=== PATIENT | male | born 1960 | race Two or more races ===

== ENCOUNTER 2020-06-07 15:19 | Outpatient (REF) | payer MEDICARE, MEDICAID, SELFPAY ==
--- NOTE | 2020-06-07 | XR_ITS ---
EXAMINATION: XR ABDOMEN COMPLETE CLINICAL INDICATION: Metallic object within transverse colon on prior study COMPARISON: CT 05/17/2020 TECHNIQUE: Multiple views of the abdomen AP chest. FINDINGS: No bowel dilatation to suggest obstruction. No metallic foreign body is evident. Lungs appear clear. IMPRESSION: Nonobstructive bowel gas pattern with no metallic foreign body.
== END 2020-06-07 15:20 | disposition home or self-care (01) ==
LOC: HO.XRAY 15:19
PROVIDERS: PCP Internal Medicine; Visit Provider Internal Medicine Gastroenterology
DX: R93.3 Abnormal findings on diagnostic imaging of other parts of digestive tract (principal)
CPT/HCPCS: 74022

== ENCOUNTER 2020-06-14 13:47 | Outpatient (REF) | payer MEDICARE, MEDICAID, SELFPAY ==
--- NOTE | 2020-06-14 14:03 | MR_ITS ---
EXAMINATION: MR LUMBAR SPINE WITHOUT CONTRAST CLINICAL INFORMATION: Lumbar radiculopathy. Evaluate for disc herniation. Left lower extremity numbness. COMPARISON: CT scan of the abdomen and pelvis 05/17/2020. TECHNIQUE: MRI of the lumbar spine was obtained using routine sequences without contrast. FINDINGS: There is transitional spinal anatomy with partial sacralization of the L5 vertebral segment. Alignment is normal. Vertebral heights are preserved. No acute bone marrow signal changes. There is slight loss of intervertebral disc height and T2 signal intensity at multiple levels related to disc degeneration. The tip of the conus medullaris is located at the level of L1-L2. No mass effect on the conus. Visualized distal cord signal intensity is normal. At L1-L2 the annular contour is normal. No canal or neuroforaminal compromise. At L2-L3 there is a slightly bulging disc. No canal stenosis. No mass effect on the traversing or foraminal nerve root. At L3-L4 there is a slightly bulging disc. Bilateral facet degenerative change. No canal stenosis. Partial effacement of perineural fat with mild mass effect on the left L3 foraminal nerve root. At L4-L5 there is a diffusely bulging disc. Bilateral facet degenerative change. No canal stenosis. Mild mass effect on both L4 foraminal nerve roots, slightly greater on the right. At L5-S1 the annular contour is normal. No canal or neuroforaminal compromise. Limited visualization of the retroperitoneal anatomy reveals no abnormal finding. IMPRESSION: Of note there is transitional spinal anatomy at the lumbosacral junction with partial sacralization of L5. There is disc degeneration and arthrosis of the articular facet joints at multiple levels within the mid to lower lumbar spine. No canal stenosis. Mild mass effect on both L4 foraminal nerve roots related to degenerative changes at L4-L5 and mild mass effect on the left L3 foraminal nerve root related to changes at L3-L4.
== END 2020-06-14 13:48 | disposition home or self-care (01) ==
LOC: HO.MRI 13:47
PROVIDERS: Visit Provider Psychiatry & Neurology Neurology
DX: M54.16 Radiculopathy, lumbar region (principal)
CPT/HCPCS: 72148

== ENCOUNTER 2020-06-26 08:40 | Outpatient (REF) | payer MEDICARE, MEDICAID, SELFPAY | END 2020-06-26 08:41 | disposition home or self-care (01) | LOC: HO.LAB 08:40 | PROVIDERS: Visit Provider Internal Medicine | DX: Z20.828 Contact with and (suspected) exposure to other viral communicable diseases (principal) | CPT/HCPCS: 87635 ==

== ENCOUNTER 2020-07-14 09:05 | Outpatient (REF) | payer MEDICARE, MEDICAID, SELFPAY | END 2020-07-14 09:06 | disposition home or self-care (01) | LOC: HO.LAB 09:05 | PROVIDERS: Visit Provider Internal Medicine | DX: Z20.828 Contact with and (suspected) exposure to other viral communicable diseases (principal) | CPT/HCPCS: C9803; U0003 ==

== ENCOUNTER → 2020-08-08 13:49 | Outpatient (BNVA) | payer MEDICARE, MEDICAID, SELFPAY | PROVIDERS: PCP Internal Medicine; Referring Provider Internal Medicine; Visit Provider Internal Medicine | DX: I25.10 Atherosclerotic heart disease of native coronary artery without angina pectoris (principal); I42.8 Other cardiomyopathies; I10 Essential (primary) hypertension | CPT/HCPCS: 93005; 99212 ==

== ENCOUNTER 2020-08-15 09:52 | Outpatient (REF) | payer MEDICARE, MEDICAID, SELFPAY | END 2020-08-15 09:53 | disposition home or self-care (01) | LOC: HO.LAB 09:52 | PROVIDERS: Visit Provider Internal Medicine | DX: Z20.828 Contact with and (suspected) exposure to other viral communicable diseases (principal) | CPT/HCPCS: C9803; U0003 ==

== ENCOUNTER 2020-09-13 16:29 | Emergency (ER) | payer MEDICARE, MEDICAID, SELFPAY ==
[2020-09-13 16:38] VITALS: BP 167/99; PULSE 88; RESP 20; TEMP 36.6; O2SAT 99; BMI 40.1
--- NOTE | 2020-09-13 16:42 | XR_ITS ---
EXAMINATION: XR CHEST CLINICAL INFORMATION: Chest pain COMPARISON: Chest radiographs 10/01/2019, 07/03/2019 TECHNIQUE: Upright PA view of the chest was obtained. FINDINGS: There is no pneumothorax, pleural reaction, infiltrate, or effusion. The costophrenic sulci are clear. There is linear scar versus areolar tissue adjacent to cardiac apex similar to prior study. There is no airspace consolidation or definite groundglass opacity. The heart is normal in size. The hilar and mediastinal contours are normal. There are multilevel degenerative changes thoracic spine. XR/XR chest 1V IMPRESSION: Unremarkable examination.
--- NOTE | 2020-09-13 16:42 | ECG_ITS ---
Test Reason : CHEST PAIN Blood Pressure : / mmHG Vent. Rate : 083 BPM Atrial Rate : 083 BPM P-R Int : 168 ms QRS Dur : 096 ms QT Int : 380 ms P-R-T Axes : 044 -01 030 degrees QTc Int : 446 ms Normal sinus rhythm Minimal voltage criteria for LVH, may be normal variant Borderline ECG When compared with ECG of 01-OCT-2019 19:54, No significant change was found Referred By: Generic ED Physician Electronically Signed By:KATH TORRES MD
[2020-09-13 17:33] VITALS: BP 144/90; PULSE 79; RESP 17; TEMP 36.4; O2SAT 99
[2020-09-13 17:37] LABS: MANUAL DIFF FLAG NO
[2020-09-13 17:47] LABS: Basophils Absolute Auto 0.1 X10*3/uL (0.0-0.2); Basophils Percent Auto 0.6 % (0-2); Eosinophils Absolute Auto 0.3 X10*3/uL (0.0-0.4); Eosinophils Percent Auto 3.7 % (0-4); Hematocrit 41.1 % (42-52); Hemoglobin 13.1 g/dl (14.0-18.0); Imm Gran Abs Auto 0.03 X10*3/uL (0.00-0.03); Imm Gran Pct Auto 0.3 % (0.0-0.4); Lymphocytes Absolute Auto 1.6 X10*3/uL (1.2-4.9); Lymphocytes Percent Auto 17.4 % (20-40); Mean Corpuscular HGB Conc 31.9 g/dl (31.0-36.0); Mean Corpuscular Hemoglobin 27.5 pg (27.0-33.0); Mean Corpuscular Volume 86.2 fL (80-98); Mean Platelet Volume 10.9 fL (9.4-12.4); Monocytes Absolute Auto 0.9 X10*3/uL (0.1-1.2); Monocytes Percent Auto 10.4 % (2-11); Neutrophils Absolute Auto 6.1 X10*3/uL (2.0-8.3); Neutrophils Percent Auto 67.6 % (45-73); Platelet Count 208 X10*3/uL (160-400); Red Blood Count 4.77 X10*6/uL (4.60-5.80); Red Cell Distribution Width 13.6 % (11.0-16.0)
[2020-09-13 18:02] LABS: Anion Gap 14 (12-20); Blood Urea Nitrogen 18 mg/dL (9-16); Calcium 9.3 mg/dL (8.4-10.2); Carbon Dioxide 26 mmol/L (22-29); Chloride 105 mmol/L (96-108); Creatinine Clr Calc Pharmacy 108.5; Estimated Glomerular Filt Rate > 60; Glucose Random 88 mg/dL (60-115); Potassium 4.5 mmol/l (3.3-5.1); Sodium 140 mmol/L (135-145)
[2020-09-13 18:08] LABS: Troponin-I High Sensitivity < 3.5 ng/L (<3.5-35.0)
== END 2020-09-13 19:41 | disposition left against medical advice (07) ==
LOC: HO.ED 19:43
PROVIDERS: Emergency Provider Emergency Medicine
DX: R07.9 Chest pain, unspecified (principal); I10 Essential (primary) hypertension; F17.210 Nicotine dependence, cigarettes, uncomplicated
CPT/HCPCS: 36415; 71045; 80048; 84484; 85025; 93005; 99283

== ENCOUNTER 2020-10-18 09:35 | Outpatient (REF) | payer MEDICARE, MEDICAID, SELFPAY | END 2020-10-18 09:36 | disposition home or self-care (01) | LOC: HO.LAB 09:35 | PROVIDERS: Visit Provider Internal Medicine | DX: Z20.822 Contact with and (suspected) exposure to COVID-19 (principal) | CPT/HCPCS: 36415; C9803; U0003; U0005 ==

== ENCOUNTER 2020-10-30 08:25 | Outpatient (REF) | payer MEDICARE, MEDICAID, SELFPAY | END 2020-10-30 08:26 | disposition home or self-care (01) | LOC: HO.LAB 08:25 | PROVIDERS: Visit Provider Internal Medicine | DX: Z20.822 Contact with and (suspected) exposure to COVID-19 (principal) | CPT/HCPCS: 36415; C9803; U0003; U0005 ==

== ENCOUNTER 2020-11-28 14:30 | Outpatient (REF) | payer MEDICARE, MEDICAID, SELFPAY ==
[2020-11-29 11:18] LABS: SARS COV2 PCR INHOUSE NEGATIVE (Negative)
== END 2020-11-28 14:31 | disposition home or self-care (01) ==
LOC: HO.LAB 14:30
PROVIDERS: Visit Provider Internal Medicine
DX: Z20.822 Contact with and (suspected) exposure to COVID-19 (principal)
CPT/HCPCS: C9803; U0003

== ENCOUNTER 2020-12-12 19:54 | Emergency (ER) | payer OTHER, MEDICARE, MEDICAID, SELFPAY ==
[2020-12-12 20:26] VITALS: BP 186/106; PULSE 71; RESP 18; TEMP 36.7; O2SAT 100; BMI 40.0
[2020-12-12 21:10] LABS: MANUAL DIFF FLAG NO
[2020-12-12 21:12] LABS: Basophils Percent Auto 0.5 % (0-2); Eosinophils Absolute Auto 0.2 X10*3/uL (0.0-0.4); Hematocrit 41.2 % (42-52); Hemoglobin 13.3 g/dl (14.0-18.0); Imm Gran Abs Auto 0.02 X10*3/uL (0.00-0.03); Imm Gran Pct Auto 0.2 % (0.0-0.4); Lymphocytes Absolute Auto 1.7 X10*3/uL (1.2-4.9); Lymphocytes Percent Auto 21.6 % (20-40); Mean Corpuscular HGB Conc 32.3 g/dl (31.0-36.0); Mean Corpuscular Hemoglobin 27.7 pg (27.0-33.0); Mean Corpuscular Volume 85.7 fL (80-98); Mean Platelet Volume 10.9 fL (9.4-12.4); Monocytes Absolute Auto 0.7 X10*3/uL (0.1-1.2); Monocytes Percent Auto 9.1 % (2-11); Neutrophils Absolute Auto 5.3 X10*3/uL (2.0-8.3); Neutrophils Percent Auto 65.6 % (45-73); Platelet Count 208 X10*3/uL (160-400); Red Blood Count 4.81 X10*6/uL (4.60-5.80); Red Cell Distribution Width 14.1 % (11.0-16.0); White Blood Count 8.1 X10*3/uL (4.8-10.8)
[2020-12-12 21:43] LABS: Troponin-I High Sensitivity 3.8 ng/L (<3.5-35.0)
== END 2020-12-12 22:35 | disposition left against medical advice (07) ==
PROVIDERS: Emergency Medicine; Emergency Provider Emergency Medicine
DX: R51.9 Headache, unspecified (principal); I10 Essential (primary) hypertension; Z79.899 Other long term (current) drug therapy; Z79.02 Long term (current) use of antithrombotics/antiplatelets
CPT/HCPCS: 36415; 84484; 85025; 99282; 99283

== ENCOUNTER → 2021-02-02 10:16 | Outpatient (REF) | payer MEDICARE, MEDICAID, SELFPAY ==
--- NOTE | 2021-02-02 10:21 | CA_ITS ---
Transthoracic Echocardiogram Patient (Last, First, Middle): Solomon Álvarez M Gender: Male Date of : 1960 Age: 60 Procedure Date: 02/02/2021 Procedure Type: Transthoracic Echocardiogram Location: OP Height: 177.8 cm Weight: 124.74 kg BSA: 2.39 m2 Heart Rate: bpm BP: 142 / 84 mmHg Geographical Historian: Referring MD: Jovany Lazcano MD Symptoms: I42.8 - Other cardiomyopathies Conclusions: - The left ventricular systolic function is mild to moderately decreased. The visually estimated ejection fraction is between 35-40%. - The apical inferior, apical septum, and mid inferoseptal segments are hypokinetic. - The basal inferior, mid inferior, and basal inferoseptal segments are akinetic. - There is mild dilatation of the ascending aorta and mild dilatation of the aortic arch. Findings Procedure Information Contrast agent, definity, is being given per protocol without apparent complications. Left Ventricle Normal left ventricular cavity size. There is mildly increased left ventricular wall thickness. The left ventricular systolic function is mild to moderately decreased. The visually estimated ejection fraction is between 35-40%. There is evidence of regional wall motion abnormalities. Abnormal diastolic function is noted. Spectral Doppler is indicative of a pseudonormal filling pattern. E/E prime ratio is between 8 and 15 consistent with indeterminate filling pressures. Wall Motion Rest Echo Findings The apical inferior, apical septum, and mid inferoseptal segments are hypokinetic. The basal inferior, mid inferior, and basal inferoseptal segments are akinetic. Right Ventricle Normal right ventricular cavity size and systolic function. Atria The left atrium is normal in size. The right atrium is normal in size. Aortic Valve There is a normal trileaflet aortic valve. There is mild thickening of the aortic valve. There is no aortic valve stenosis. There is no aortic valve regurgitation. Mitral Valve Normal mitral valve structure and function. There is trace mitral valve regurgitation. There is no mitral valve stenosis. Pulmonic Valve The pulmonic valve is likely normal. Tricuspid Valve Normal tricuspid valve structure and function. There is trace tricuspid valve regurgitation. Mildly elevated right atrial pressure. There is no evidence of pulmonary hypertension. Great Vessels There is mild dilatation of the ascending aorta and mild dilatation of the aortic arch. The visualized portions of the pulmonary artery and branches are normal. Venous The inferior vena cava is normal in size and collapses less than 50% with inspiration. Pericardium/Pleural There is no evidence of pericardial effusion. Prior Study Comparison No significant change compared to prior study dated: 02/17/2020. Measurements 2D Linear Measurements RVIDd: 2.99 RVIDd Index: 1.25 IVSd: 1.16 0.6-0.9/0.6-1.0 cm LVIDd: 6.20 3.9-5.3/4.2-5.9 cm LVIDd Index: 2.59 2.4-3.2/2.2-3.1 cm/m2 LVIDs: 4.89 2.0-3.6 cm LVPWd: 1.21 0.7-1.1 cm Ao Root: 3.30 2.1-3.5 cm LA Diam: 4.30 2.7-3.8/3.0-4.0 cm LAIDs Index: 1.80 1.5-2.3 cm/m2 LV Mass: 406.74 67-162/88-224 g LV Mass Index: 170.18 43-95/49-115 g/m2 LVOT Diam: 2.50 3.0+(-)1.3 cm 2D Systolic Function EF 4C: 21.80 >55% EF 2C: 51.50 >55% EF BiP: 39.90 >55% Mitral Valve MV Pk E: 0.57 MV PK A: 0.51 MV Decel Time: 259.00 E/A: 1.10 E'Lateral: 7.72 E'Medial: 5.33 E/E' Med: 10.80 E/E' Lat: 7.40 Aortic Valve AoV Pk Jorge A: 1.29 AoV Mn Jorge A: 1.00 AoV VTI: 0.27 AoV Pk Grad: 7.00 Aov Mn Grad: 4.00 PAOLA Cont.VTI: 2.74 LVOT LVOT Pk Jorge A: 0.73 LVOT Mn Jorge A: 0.47 LVOT VTI: 0.15 LVOT Pk Grad: 2.00 LVOT Mn Grad: 1.00 LVOT Diam: 2.50 LVOT Area: 4.91 Diastolic Function MV Pk E: 0.57 MV Pk A: 0.51 E/A: 1.10 E'Medial: 5.33 E/E' Med: 10.80 E' Laterial: 7.72 E/E' Lat: 7.40 Tricuspid Valve TR Pk Jorge A: 2.06 TR Pk Grad: 17.00 RA Press: 3.00 RVSP: 20.00 Great Vessels Aorta Ao Root-2D: 3.30 2.0-3.7 cm Ao Asc: 3.50 2.1-3.4 cm Ao Arch: 3.40 Updated in Other Vendor System with Status of Final Serafin Ruggiero MD electronically signed on 02/04/2021 7:46:35 PM with status of Final
== END ==
LOC: HO.CARD 10:16
PROVIDERS: Visit Provider Internal Medicine
DX: I42.8 Other cardiomyopathies (principal); I25.10 Atherosclerotic heart disease of native coronary artery without angina pectoris; J45.909 Unspecified asthma, uncomplicated
CPT/HCPCS: 93306; Q9957

== ENCOUNTER → 2021-02-14 13:01 | Outpatient (BNVA) | payer MEDICARE, MEDICAID, SELFPAY | PROVIDERS: PCP Internal Medicine; Referring Provider Internal Medicine; Visit Provider Internal Medicine | DX: I42.8 Other cardiomyopathies (principal); I25.10 Atherosclerotic heart disease of native coronary artery without angina pectoris; I10 Essential (primary) hypertension | CPT/HCPCS: 99212 ==

== ENCOUNTER 2021-02-19 17:14 | Inpatient (IN) | payer OTHER, MEDICARE, MEDICAID, SELFPAY ==
--- NOTE | 2021-02-19 | ECG_ITS ---
Test Reason : CP Blood Pressure : / mmHG Vent. Rate : 070 BPM Atrial Rate : 070 BPM P-R Int : 142 ms QRS Dur : 100 ms QT Int : 412 ms P-R-T Axes : 023 -03 004 degrees QTc Int : 444 ms Normal sinus rhythm Moderate voltage criteria for LVH, may be normal variant Borderline ECG When compared with ECG of 13-SEP-2020 17:23, No significant changes seen Referred By: Generic ED Physician Electronically Signed By:Serafin Ruggiero
--- NOTE | ~2021-02-19 | XR_ITS ---
EXAMINATION: XR CHEST CLINICAL INFORMATION: Chest pain COMPARISON: None TECHNIQUE: Frontal view of the chest was obtained. FINDINGS: Again seen is some minimal atelectasis at the left lung base. No significant abnormality is noted involving the heart, lungs, mediastinum, bony thorax or soft tissues. XR/XR chest 1V IMPRESSION: No acute intrathoracic disease
--- NOTE | 2021-02-19 07:26 | ECG_ITS ---
Test Reason : CHEST PRESSURE Blood Pressure : / mmHG Vent. Rate : 055 BPM Atrial Rate : 055 BPM P-R Int : 164 ms QRS Dur : 104 ms QT Int : 444 ms P-R-T Axes : 028 001 012 degrees QTc Int : 424 ms Sinus bradycardia Moderate voltage criteria for LVH, may be normal variant Borderline ECG When compared with ECG of 19-FEB-2021 17:28, No significant change was found Referred By: Brian Hancock Electronically Signed By:Serafin Ruggiero
[2021-02-19 17:17] VITALS: BP 164/84; PULSE 79; RESP 18; TEMP 36.8; O2SAT 99; BMI 39.4
--- NOTE | 2021-02-19 17:54 | ED_ITS ---
HPI - Chest Pain General Chief Complaint: Chest Pain Stated Complaint: Chest pain Time Seen by Provider: 02/19/21 17:54 Source: patient Mode of arrival: ambulatory Limitations: no limitations History of Present Illness HPI narrative: 60-year-old male with past medical history significant for morbid obesity hypertension, nonischemic cardiomyopathy who has had a cardiac catheterization in 2012 that showed [id number] obstructive disease and normal left main. And recent echo on February 01 that showed LVEF of 35-40% being followed by cardiology here and plan for cardiac catheterization on February 27 he presents today with complaint of left-sided/substernal chest pain that he describes as pressure and squeezing like onset at rest 45 minutes prior to arrival. States now since he has come here it has resolved. States similar episodes in the past and pain comes and goes. Otherwise he denies any other recent illness. No fever or cough. He does report there is some mild shortness of breath at times similar to previous episodes. At this moment he does not any chest pain. States he is currently taking Plavix beginning take aspirin because he has an allergy to it. MD complaint: chest pain Pertinent past history: coronary artery disease Onset (ago): minute(s) (45 minutes) Timing of current episode: episodic Prior episodes: Yes Onset: during rest Pain radiation: none Severity: mild Quality: tightness Relieving factors: nothing Exacerbating factors: nothing Treatment prior to arrival: other (Plavix) Related Data Home Medications Medication Instructions Recorded Confirmed albuterol sulfate 90 mcg/actuation 1 - 2 puff INHALATION Q4-6H PRN 08/08/20 02/19/21 aerosol inhaler atorvastatin 80 mg tablet 80 mg PO DAILY 08/08/20 02/19/21 clopidogrel 75 mg tablet 75 mg PO DAILY 08/08/20 02/19/21 fluticasone propionate 230 1 puff PO BID 08/08/20 02/19/21 mcg-salmeterol 21 mcg/actuation HFA inhaler fluticasone propionate 50 1 spray INTRANASAL BID 08/08/20 02/19/21 mcg/actuation nasal spray,suspension metoprolol succinate 50 mg 50 mg PO DAILY 08/08/20 02/19/21 tablet,extended release 24 hr acetaminophen 500 mg tablet 1,000 mg PO Q6H PRN 12/15/20 02/19/21 Previous Rx's Medication Instructions Recorded losartan 100 mg tablet 100 mg PO DAILY #90 tab 12/22/20 amlodipine 5 mg tablet 5 mg PO DAILY 90 Days #90 tab 01/26/21 Allergies Allergy/AdvReac Type Severity Reaction Status Date / Time aspirin [Aspirin] Allergy Severe SWELLING, Verified 02/14/21 13:16 rash/edema ibuprofen [Ibuprofen] Allergy Severe SWELLING, Verified 02/14/21 13:16 rash/edema Penicillins Allergy Severe SWELLING Verified 02/14/21 13:16 Review of Systems Review of Systems: Constitutional: No Weight loss, No Fever, No Chills, No Night Sweats, No Fatigue, No Malaise ENT/Mouth: No Hearing loss, No Ear Pain, No Nasal Congestion, No Sinus Pain, No Hoarseness, No sore throat, No Rhinorrhea, No Swallowing Difficulty Eyes: No Eye Pain, No Swelling, No Redness, No Foreign Body, No Discharge, No Vision Changes Cardiovascular: As noted per HPI, No Dyspnea on Exertion, No Orthopnea, No Edema, No Palpitations Respiratory: No Cough, No Sputum, No Wheezing, No Smoke Exposure, No Dyspnea Gastrointestinal: No Nausea, No Vomiting, No Diarrhea, No Constipation, No abdominal Pain, No Hematochezia, No Melena Genitourinary: no irregular bleeding, No Dysuria, No Urinary Frequency, No Hematuria, No Urinary Incontinence, No Urgency, No Flank Pain, No Urinary Flow Changes, No Hesitancy Musculoskeletal: No joint pain, No Myalgias, No Joint Swelling Skin: No Skin Lesions, No rash Neuro: No Weakness, No Numbness, No Paresthesias, No Loss of Consciousness, No D izziness, No Headache Psych: No Anxiety/Panic, No Depression, No Social Issues Heme/Lymph: No Bruising, No Bleeding,No Lymphadenopathy Endocrine: No Polyuria, No Polydipsia, No Temperature Intolerance Yes all other systems are reviewed and are negative [facility] Past Medical History Medical History (Updated 02/20/21 @ 01:00 by Brian Hancock NP) Atherosclerotic cardiovascular disease Essential hypertension HTN (hypertension) NICM (nonischemic cardiomyopathy) Surgical History History of bilateral knee arthroplasty History of cardiac catheterization (~12/2013) Family History Family History Father Pacemaker CVD (cardiovascular disease) HTN (hypertension) Mother CVD (cardiovascular disease) Asthma Social History Social History (Updated 02/14/21 @ 13:17 by QASIM Benites) Alcohol intake: current Alcohol intake frequency: holidays/special occasions only Alcohol type: beer Patient Tobacco Use Status: Current someday Tobacco user Cigarette Packs Per Day: 0.5 Use of substances other than those prescribed or required for medical reasons: No Advance Directives: No Advance Directives Information Provided: Yes Physical Exam Vital Signs: Vital Signs: Last Vital Signs Temp 98.2 F 02/19/21 22:55 Pulse 58 02/20/21 00:39 Resp 16 02/20/21 00:39 BP 154/91 H 02/20/21 00:39 Pulse Ox 99 02/20/21 00:39 Body Mass Index 39.4 Reviewed Const: General: cooperative and healthy appearing; No acute distress or intoxicated appearing Nutritional Appearance: average body habitus Orientation/consciousness: patient oriented x3 HENMT: Head: Yes normal to inspection Ears: hearing grossly normal bilaterally Eyes: General: appearance normal, both eyes and all related structures Visual Anglin: normal visual anglin by confrontation Neck: Neck: Yes normal visual inspection, No positive Brudzinski's sign, No positive Kernig's sign and No tender Thyroid: Thyroid normal Chest: Chest palpation & inspection: normal inspection of the chest Resp: Effort & Inspection: normal respiratory effort Auscultation: clear to auscultation bilaterally Cardio: Jugular venous distension: no JVD Rhythm: regular rhythm Heart sounds: S1 normal heart sound present and S2 normal heart sound present GI: Inspection: Yes normal to inspection Percussion: Yes normal to percussion Auscultation: normal bowel sounds : General: Yes no CVA tenderness Back/Spine/Pelvis: Back: no CVA tenderness Skin: General skin exam: no rashes or lesions noted Neuro: General: patient oriented x3 Extrem: General: Yes normal to inspection Course Reevaluation(s) Reevaluation #1: 60-year-old male with history of morbid obesity, is a sclerotic cardiovascular disease, nonischemic cardiomyopathy presenting with pressure- like chest pain resolved prior to arrival occurred 45 minutes prior to coming to the ED while he was sitting in his recliner similar episodes in the past. History of unstable angina has had cardiac catheterization with [id number] disease in 2012 recent echo 2 weeks ago was also reviewed. Plan for labs, EKG and will consult cardiology. He does have Plavix on board he has allergy to aspirin. Reevaluation #2: Serial troponin as well as repeat EKG unremarkable. He had 1 e pisode of pain while he was resting but does not have any right now. Case was discussed with Cardiology recommendation for admission he has a scheduled cardiac catheterization on February 27 but can be done this Friday. Patient would feel more comfortable staying here. He remains pain free. Case discussed with hospitalist. Plan for admission Consultations Consultation #1: Cardiology Dr. Ruggiero Consultation #2: Hospitalist [facility]. De [facility] - Chest Pain Medical Records Data Attestation: I reviewed the patient's medical records. Medical records narrative: Echocardiogram 02/02/[address] Ruggiero cardiology Conclusions: - The left ventricular systolic function is mild to moderately decreased. The visually estimated ejection fraction is between 35-40%. - The apical inferior, apical septum, and mid inferoseptal segments are hypokinetic. - The basal inferior, mid inferior, and basal inferoseptal segments are akinetic. - There is mild dilatation of the ascending aorta and mild dilatation of the aortic arch. Lab Data Result diagrams: 02/19/21 18:19 02/19/21 18:19 Labs: Lab Results 02/19/21 02/19/21 02/19/21 Range/Units 18:19 18:19 18:19 WBC 8.4 (4.8-10.8) X10*3/uL RBC 4.42 L (4.60-5.80) X10*6/uL Hgb 12.5 L (14.0-18.0) g/dl Hct 37.6 L (42-52) % MCV 85.1 (80-98) fL MCH 28.3 (27.0-33.0) pg MCHC 33.2 (31.0-36.0) g/dl RDW 14.0 (11.0-16.0) % Plt Count 195 (160-400) X10*3/uL MPV 10.8 (9.4-12.4) fL Immature Gran % (Auto) 0.2 (0.0-0.4) % Neut % (Auto) 66.3 (45-73) % Lymph % (Auto) 19.7 L (20-40) % [place] % (Auto) 10.3 (2-11) % Eos % (Auto) 3.1 (0-4) % Baso % (Auto) 0.4 (0-2) % Lymph # (Auto) 1.7 (1.2-4.9) X10*3/uL [place] # (Auto) 0.9 (0.1-1.2) X10*3/uL Eos # (Auto) 0.3 (0.0-0.4) X10*3/uL Baso # (Auto) 0.0 (0.0-0.2) X10*3/uL Abs Immat Gran (auto) 0.02 (0.00-0.03) X10*3/uL Absolute Neuts (auto) 5.6 (2.0-8.3) X10*3/uL Absolute Nucleated RBC 0.000 (0.0-0.012) X10*3/uL Nucleated RBC % (auto) 0.0 (0.0-0.2) /100WBC PT 11.8 (10.8-13.0) SEC INR 1.0 (0.9-1.1) APTT 30.8 (24.1-38.0) SEC D-Dimer < 200 NG/ML Sodium 140 (135-145) mmol/L Potassium 4.2 (3.3-5.1) mmol/L Chloride 107 (96-108) mmol/L Carbon Dioxide 24 (22-29) mmol/L Anion Gap 13 (12-20) BUN 17 H (9-16) mg/dL Creatinine 1.02 (0.5-1.4) mg/dL Estim Creat Clear Calc 103.3 Estimated GFR > 60 Random Glucose 95 (60-115) mg/dL Calcium 9.1 (8.4-10.2) mg/dL Total Bilirubin 0.5 (0.0-1.0) mg/dL AST 24 (5-37) U/L ALT 29 (0-40) U/L Alkaline Phosphatase 71 (39-117) U/L Troponin I High Sens (<3.5-35.0) ng/L Total Protein 6.8 (6.5-8.0) g/dL Albumin 4.3 (3.5-5.0) g/dL Urine Color Urine Appearance Urine pH (5.0-8.0) Ur Specific [place] (1.005-1.025) Urine Protein (NEG-TRACE) MG/DL Urine Glucose (UA) (NEG) MG/DL Urine Ketones (NEG) MG/DL Urine Blood (NEG) Urine Nitrite (NEG) Ur Leukocyte Esterase (NEG) Urine RBC (0) /HPF Urine WBC (0-4) /HPF Ur Squamous Epith Cells /LPF Urine Bacteria /LPF 02/19/21 02/19/21 02/19/21 Range/Units 18:19 19:23 22:14 WBC (4.8-10.8) X10*3/uL RBC (4.60-5.80) X10*6/uL Hgb (14.0-18.0) g/dl Hct (42-52) % MCV (80-98) fL MCH (27.0-33.0) pg MCHC (31.0-36.0) g/dl RDW (11.0-16.0) % Plt Count (160-400) X10*3/uL MPV (9.4-12.4) fL Immature Gran % (Auto) (0.0-0.4) % Neut % (Auto) (45-73) % Lymph % (Auto) (20-40) % [place] % (Auto) (2-11) % Eos % (Auto) (0-4) % Baso % (Auto) (0-2) % Lymph # (Auto) (1.2-4.9) X10*3/uL [place] # (Auto) (0.1-1.2) X10*3/uL Eos # (Auto) (0.0-0.4) X10*3/uL Baso # (Auto) (0.0-0.2) X10*3/uL Abs Immat Gran (auto) (0.00-0.03) X10*3/uL Absolute Neuts (auto) (2.0-8.3) X10*3/uL Absolute Nucleated RBC (0.0-0.012) X10*3/uL Nucleated RBC % (auto) (0.0-0.2) /100WBC PT (10.8-13.0) SEC INR (0.9-1.1) APTT (24.1-38.0) SEC D-Dimer NG/ML Sodium (135-145) mmol/L Potassium (3.3-5.1) mmol/L Chloride (96-108) mmol/L Carbon Dioxide (22-29) mmol/L Anion Gap (12-20) BUN (9-16) mg/dL Creatinine (0.5-1.4) mg/dL Estim Creat Clear Calc Estimated GFR Random Glucose (60-115) mg/dL Calcium (8.4-10.2) mg/dL Total Bilirubin (0.0-1.0) mg/dL AST (5-37) U/L ALT (0-40) U/L Alkaline Phosphatase (39-117) U/L Troponin I High Sens < 3.5 < 3.5 (<3.5-35.0) ng/L Total Protein (6.5-8.0) g/dL Albumin (3.5-5.0) g/dL Urine Color YELLOW Urine Appearance CLEAR Urine pH 6.5 (5.0-8.0) Ur Specific [place] 1.020 (1.005-1.025) Urine Protein NEG (NEG-TRACE) MG/DL Urine Glucose (UA) NEG (NEG) MG/DL Urine Ketones NEG (NEG) MG/DL Urine Blood NEG (NEG) Urine Nitrite NEG (NEG) Ur Leukocyte Esterase NEG (NEG) Urine RBC 0-2 (0) /HPF Urine WBC 0 (0-4) /HPF Ur Squamous Epith Cells NONE /LPF Urine Bacteria TRACE /LPF Imaging Data Chest x-ray: Radiologist's impression: [address] [id number] ReportSigned Patient: Solomon Álvarez [facility]#: [id number]: 1960cct:[id number]/Sex: 60 / MADM Date: 02/19/21Loc: [address] Dr: Ordering Physician: Brian Hancock NP Date of Service: 02/19/21 Procedure(s): XR chest 1V Accession Number(s): [id number] cc: Brian Hancock 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 FINDINGS: Again seen is some minimal atelectasis at the left lung base. No significant abnormality is noted involving the heart, lungs, mediastinum, bony thorax or soft tissues. 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 Rate : 070 BPM Atrial Rate : 070 BPM P-R Int : 142 ms QRS Dur : 100 ms QT Int : 412 ms P-R-T Axes : 023 -03 004 degrees QTc Int : 444 ms Normal sinus rhythm Moderate voltage criteria for LVH, may be normal variant When compared with ECG of 13-SEP-2020 17:23, Minimal criteria for Inferior infarct are now Presen Discharge Plan Discharge Clinical Impression: Chest pain Patient Disposition: Admitted As Inpatient Prescriptions: No Action losartan 100 mg tablet 100 mg PO DAILY Qty: 90 RF: 3 amlodipine 5 mg tablet 5 mg PO DAILY 90 Days Qty: 90 RF: 1 acetaminophen 500 mg tablet 1,000 mg PO Q6H PRN (Reason: Pain) RF: 0 metoprolol succinate 50 mg tablet extended release 24 hr 50 mg PO DAILY RF: 0 clopidogrel 75 mg tablet 75 mg PO DAILY RF: 0 Advair HFA 230-21 mcg/actuation HFA aerosol inhaler 1 puff PO BID RF: 0 albuterol sulfate 90 mcg/actuation HFA aerosol inhaler 1 - 2 puff inhalation Q4-6H PRN (Reason: wheezing) RF: 0 atorvastatin 80 mg tablet 80 mg PO DAILY RF: 0 fluticasone propionate 50 mcg/actuation spray,suspension 1 spray intranasal BID RF: 0
[2021-02-19 18:24] LABS: MANUAL DIFF FLAG NO
[2021-02-19 18:35] LABS: Basophils Percent Auto 0.4 % (0-2); Eosinophils Absolute Auto 0.3 X10*3/uL (0.0-0.4); Eosinophils Percent Auto 3.1 % (0-4); Hematocrit 37.6 % (42-52); Hemoglobin 12.5 g/dl (14.0-18.0); Imm Gran Abs Auto 0.02 X10*3/uL (0.00-0.03); Imm Gran Pct Auto 0.2 % (0.0-0.4); Lymphocytes Absolute Auto 1.7 X10*3/uL (1.2-4.9); Lymphocytes Percent Auto 19.7 % (20-40); Mean Corpuscular HGB Conc 33.2 g/dl (31.0-36.0); Mean Corpuscular Hemoglobin 28.3 pg (27.0-33.0); Mean Corpuscular Volume 85.1 fL (80-98); Mean Platelet Volume 10.8 fL (9.4-12.4); Monocytes Absolute Auto 0.9 X10*3/uL (0.1-1.2); Monocytes Percent Auto 10.3 % (2-11); Neutrophils Absolute Auto 5.6 X10*3/uL (2.0-8.3); Neutrophils Percent Auto 66.3 % (45-73); Platelet Count 195 X10*3/uL (160-400); Prothrombin Time 11.8 SEC (10.8-13.0); Red Blood Count 4.42 X10*6/uL (4.60-5.80); White Blood Count 8.4 X10*3/uL (4.8-10.8)
[2021-02-19 18:38] LABS: D Dimer < 200 NG/ML; Partial Thromboplastin Time 30.8 SEC (24.1-38.0)
[2021-02-19 18:48] LABS: Alanine Aminotransferase 29 U/L (0-40); Albumin Level 4.3 g/dL (3.5-5.0); Alkaline Phosphatase 71 U/L (39-117); Anion Gap 13 (12-20); Aspartate Amino Transferase 24 U/L (5-37); Bilirubin Total 0.5 mg/dL (0.0-1.0); Blood Urea Nitrogen 17 mg/dL (9-16); Calcium 9.1 mg/dL (8.4-10.2); Carbon Dioxide 24 mmol/L (22-29); Chloride 107 mmol/L (96-108); Creatinine Clr Calc Pharmacy 103.3; Estimated Glomerular Filt Rate > 60; Glucose Random 95 mg/dL (60-115); Potassium 4.2 mmol/L (3.3-5.1); Sodium 140 mmol/L (135-145); Total Protein 6.8 g/dL (6.5-8.0)
[2021-02-19 18:52] LABS: Troponin-I High Sensitivity < 3.5 ng/L (<3.5-35.0)
[2021-02-19 19:06] VITALS: BP 152/90; PULSE 60; RESP 16; O2SAT 99
[2021-02-19 19:31] LABS: Appearance Urine CLEAR; Color Urine YELLOW; Glucose Urine UA NEG (NEG); Leukocyte Esterase Urine NEG (NEG); Nitrite Urine NEG (NEG); PH 6.5 (5.0-8.0); Urine Blood NEG (NEG); Urine Ketones NEG (NEG); Urine Protein NEG (NEG-TRACE)
[2021-02-19 19:37] LABS: Bacteria Urine TRACE /LPF; RBC Urine 0-2 /HPF (0); WBC Urine 0 /HPF (0-4)
[2021-02-19 19:44] VITALS: BP 141/81; PULSE 60; RESP 15; TEMP 36.8; O2SAT 98
[2021-02-19 22:44] LABS: Troponin-I High Sensitivity < 3.5 ng/L (<3.5-35.0)
[2021-02-19 22:55] VITALS: BP 147/90; PULSE 58; RESP 14; TEMP 36.8; O2SAT 98
--- NOTE | 2021-02-19 23:00 | PC.NURSE ---
pt pain level high 3-4/10 intermittent, now pain level is 0/10. pt skin pink warm and dry, sb on the monitor hr 55
[2021-02-19 23:01] VITALS: BP 147/90; PULSE 57; RESP 14; O2SAT 98
--- NOTE | 2021-02-19 23:02 | PC.NURSE ---
pt has a 20g to the left wrist inserted by prev rn. sight is patient.
[2021-02-19 23:36] VITALS: BP 144/83; PULSE 59; RESP 17; O2SAT 99
[2021-02-20] VITALS (15 sets, daily range): BP systolic 112–156; BP diastolic 59–93; PULSE 52–80; RESP 12–20; TEMP 36.4–36.6; O2SAT 96–100
[2021-02-20] MEDS: Nitroglycerin 2 % Oint 1 GM Packet 0.5 INCH TRANSDERMA (00:31)
--- NOTE | 2021-02-20 00:33 | P.HPHOSP_ITS ---
History of Present Illness Date of Service: 02/20/21 Chief Complaint: Chest pain 60-year-old male with a past medical history of hypertension, hyperlipidemia, CAD, asthma, history of pacemaker, osteoarthritis, nonischemic cardiomyopathy with the EF of 35%, angina presented to the hospital with a chief complaint of chest pain. Patient reports he has been having intermittent episodes of chest pain, squeezing in nature.; current episode started 40 minutes prior to coming to the hospital. Denies any fever chills cough. The patient reported that he has been scheduled for elective catheterization on 02/27/2021. Review of all other systems is negative except mentioned above ER course: Per ER team patient chest pain improved. Given nitroglycerin. EKG x2 showed no acute ischemic changes. Discussed with Dr. caballero-> who recommended to admit the patient and will do an elective catheterization on Friday. Did not recommend heparin drip. Also mentioned patient can go home if he feels comfortable. But patient decided to stay in hospital. [facility] Medical History (Updated 02/20/21 @ 01:00 by Brian Hancock NP) Atherosclerotic cardiovascular disease Essential hypertension HTN (hypertension) NICM (nonischemic cardiomyopathy) Family History Father Pacemaker CVD (cardiovascular disease) HTN (hypertension) Mother CVD (cardiovascular disease) Asthma Surgical History History of bilateral knee arthroplasty History of cardiac catheterization (~12/2013) Social History (Updated 02/14/21 @ 13:17 by QASIM Benites) Household Members: Spouse and Children Do you presently have visiting nurse or other home services: No Alcohol intake: current Alcohol intake frequency: holidays/special occasions only Alcohol type: beer Patient Tobacco Use Status: Current someday Tobacco user Cigarette Packs Per Day: 0.5 Meds Allergies Allergy/AdvReac Type Severity Reaction Status Date / Time aspirin [Aspirin] Allergy Severe SWELLING, Verified 02/14/21 13:16 rash/edema ibuprofen [Ibuprofen] Allergy Severe SWELLING, Verified 02/14/21 13:16 rash/edema Penicillins Allergy Severe SWELLING Verified 02/14/21 13:16 Active Medications: Current Medications Generic Name Dose Route Start Last Admin Trade Name Freq PRN Reason Stop Dose Admin Acetaminophen 650 mg 02/20/21 00:28 Acetaminophen 325 Mg Tablet PO Q6H PRN Pain, Mild (Pain Scale 1-3) Amlodipine Besylate 5 mg 02/20/21 09:00 Amlodipine Besylate 5 Mg Tablet PO DAILY [facility] Protocol Atorvastatin Calcium 80 mg 02/20/21 09:00 Atorvastatin Calcium 80 Mg Tablet PO DAILY [facility] Clopidogrel Bisulfate 75 mg 02/20/21 09:00 Clopidogrel Bisulfate 75 Mg Tablet PO DAILY [facility] Docusate Sodium 100 mg 02/20/21 09:00 Docusate Sodium 100 Mg Capsule PO BID [facility] Enoxaparin Sodium 40 mg 02/20/21 00:30 Enoxaparin Sodium 40 Mg/0.4 Ml Syringe SUBCUT Q24H [facility] Fluticasone Propionate 1 spray 02/20/21 09:00 Fluticasone Propionate Nasal 16 Gm [place] NOSTRIL-B BID [facility] Losartan Potassium 100 mg 02/20/21 09:00 Losartan Potassium 50 Mg Tablet PO DAILY [facility] Protocol Magnesium Hydroxide 30 ml 02/20/21 00:28 Milk Of Magnesia 30 Ml Oral.Susp PO DAILY PRN Constipation Metoprolol Succinate 50 mg 02/20/21 09:00 Metoprolol Succinate Er 50 Mg Tab.Er.24h PO DAILY [facility] Protocol Nitroglycerin 0.4 mg 02/20/21 00:28 Nitroglycerin 0.4 Mg Tab.Subl SUBLINGUAL Q5M PRN Chest Pain Pharmacy Consult 1 each 02/19/21 17:57 Consult Rx Perform Med Rec MISCELLANE ONCE PRN Consult order Pharmacy Consult 1 each 02/20/21 00:25 Consult Rx Perform Med Rec MISCELLANE ONCE PRN Consult order Senna 17.2 mg 02/20/21 00:28 Sennosides 8.6 Mg Tablet PO BEDTIME PRN Constipation Sodium Chloride 3 ml 02/20/21 08:00 0.9 % Sodium Chloride Flush 3 Ml Syringe IVFLUSH QSHIFT [facility] Home Medications Medication Instructions Recorded Confirmed Last Taken Type albuterol sulfate 90 mcg/actuation 1 - 2 puff INHALATION Q4-6H PRN 08/08/20 02/19/21 Unknown History aerosol inhaler atorvastatin 80 mg tablet 80 mg PO DAILY 08/08/20 02/19/21 Unknown History clopidogrel 75 mg tablet 75 mg PO DAILY 08/08/20 02/19/21 Unknown History fluticasone propionate 230 1 puff PO BID 08/08/20 02/19/21 Unknown History mcg-salmeterol 21 mcg/actuation HFA inhaler fluticasone propionate 50 1 spray INTRANASAL BID 08/08/20 02/19/21 Unknown History mcg/actuation nasal spray,suspension metoprolol succinate 50 mg 50 mg PO DAILY 08/08/20 02/19/21 Unknown History tablet,extended release 24 hr acetaminophen 500 mg tablet 1,000 mg PO Q6H PRN 12/15/20 02/19/21 Unknown History Physical Exam Vital Signs and Narrative: Vital Signs: Last Vital Signs Temp 98.2 F 02/19/21 22:55 Pulse 73 02/20/21 00:31 Resp 17 02/19/21 23:36 BP 144/83 H 02/20/21 00:31 Pulse Ox 99 02/19/21 23:36 Body Mass Index 39.4 Gen: Appears be in no acute distress HEENT: NCAT, Moist mucosa. Pulmonary: Vesicular breath sounds, fair air entry CVS: Normal S1-S2 Abdomen: BS+, Soft, Nontender Extremities: Warm well perfused Neuro: Alert and awake. Results Labs CBC and Chem 7: 02/20/21 05:25 02/20/21 05:25 Labs: Laboratory Results - last 24 hr 02/19/21 02/19/21 02/19/21 18:19 18:19 18:19 MCV 85.1 MCH 28.3 MCHC 33.2 RDW 14.0 Plt Count 195 MPV 10.8 Immature Gran % (Auto) 0.2 Neut % (Auto) 66.3 Lymph % (Auto) 19.7 L [place] % (Auto) 10.3 Eos % (Auto) 3.1 Baso % (Auto) 0.4 Lymph # (Auto) 1.7 [place] # (Auto) 0.9 Eos # (Auto) 0.3 Baso # (Auto) 0.0 Abs Immat Gran (auto) 0.02 Absolute Neuts (auto) 5.6 Absolute Nucleated RBC 0.000 Nucleated RBC % (auto) 0.0 PT 11.8 INR 1.0 APTT 30.8 D-Dimer < 200 Anion Gap 13 Estim Creat Clear Calc 103.3 Estimated GFR > 60 Random Glucose 95 Calcium 9.1 Total Bilirubin 0.5 AST 24 ALT 29 Alkaline Phosphatase 71 Troponin I High Sens Total Protein 6.8 Albumin 4.3 Urine Color Urine Appearance Urine pH Ur Specific [place] Urine Protein Urine Glucose (UA) Urine Ketones Urine Blood Urine Nitrite Ur Leukocyte Esterase Urine RBC Urine WBC Ur Squamous Epith Cells Urine Bacteria 02/19/21 02/19/21 02/19/21 18:19 19:23 22:14 MCV MCH MCHC RDW Plt Count MPV Immature Gran % (Auto) Neut % (Auto) Lymph % (Auto) [place] % (Auto) Eos % (Auto) Baso % (Auto) Lymph # (Auto) [place] # (Auto) Eos # (Auto) Baso # (Auto) Abs Immat Gran (auto) Absolute Neuts (auto) Absolute Nucleated RBC Nucleated RBC % (auto) PT INR APTT D-Dimer Anion Gap Estim Creat Clear Calc Estimated GFR Random Glucose Calcium Total Bilirubin AST ALT Alkaline Phosphatase Troponin I High Sens < 3.5 < 3.5 Total Protein Albumin Urine Color YELLOW Urine Appearance CLEAR Urine pH 6.5 Ur Specific [place] 1.020 Urine Protein NEG Urine Glucose (UA) NEG Urine Ketones NEG Urine Blood NEG Urine Nitrite NEG Ur Leukocyte Esterase NEG Urine RBC 0-2 Urine WBC 0 Ur Squamous Epith Cells NONE Urine Bacteria TRACE Imaging Radiologist's Impressions: Impressions Chest X-Ray 02/19/21 17:56 IMPRESSION: No acute intrathoracic disease Assessment and Plan (1) Chest pain: Status: Acute 60-year-old male with a past medical history of hypertension, hyperlipidemia, coronary artery disease, cardiomyopathy with EF of 35%, asthma, due for elective catheterization on 02/27/21; history of angina presented to the hospital with a chief complaint of chest pain. Chest pain: Typical in nature. Currently improved. EKG x2 nonischemic. Troponins x2 negative. Nitro patch placed. Notified Cardiology who recommended admission at [facility] for now and will schedule for possible elective catheterization on Friday. Telemetry Sublingual nitroglycerin p.r.n... Continue home statin, Plavix, beta-víctor Hypertension/hyperlipidemia: Continue home losartan, metoprolol, amlodipine DVT prophylaxis: Lovenox Code status: Full code Quality Stroke Does the patient have a stroke diagnosis?: No VTE Prior VTE?: No VTE Risk Level:: Medical - moderate - high VTE Device Contraindication: N/A - Device Ordered VTE Drug Contraindication: N/A - Med Ordered
[2021-02-20] MEDS: Enoxaparin Sodium 40 MG/0.4 ML SYRINGE SUBCUT (00:49)
[2021-02-20 05:29] LABS: Basophils Percent Auto 0.4 % (0-2); Eosinophils Absolute Auto 0.3 X10*3/uL (0.0-0.4); Eosinophils Percent Auto 3.7 % (0-4); Hematocrit 37.6 % (42-52); Hemoglobin 12.4 g/dl (14.0-18.0); Lymphocytes Absolute Auto 1.7 X10*3/uL (1.2-4.9); Lymphocytes Percent Auto 23.4 % (20-40); MANUAL DIFF FLAG NO; Mean Corpuscular Hemoglobin 27.9 pg (27.0-33.0); Mean Corpuscular Volume 84.7 fL (80-98); Mean Platelet Volume 10.7 fL (9.4-12.4); Monocytes Absolute Auto 0.7 X10*3/uL (0.1-1.2); Monocytes Percent Auto 9.2 % (2-11); Neutrophils Absolute Auto 4.6 X10*3/uL (2.0-8.3); Neutrophils Percent Auto 63.3 % (45-73); Platelet Count 169 X10*3/uL (160-400); Red Blood Count 4.44 X10*6/uL (4.60-5.80); Red Cell Distribution Width 13.8 % (11.0-16.0); White Blood Count 7.3 X10*3/uL (4.8-10.8)
[2021-02-20 05:55] LABS: Anion Gap 13 (12-20); Blood Urea Nitrogen 15 mg/dL (9-16); Calcium 8.8 mg/dL (8.4-10.2); Carbon Dioxide 23 mmol/L (22-29); Chloride 106 mmol/L (96-108); Creatinine Clr Calc Pharmacy 126.9; Estimated Glomerular Filt Rate > 60; Glucose Random 101 mg/dL (60-115); Sodium 138 mmol/L (135-145)
--- NOTE | 2021-02-20 07:22 | ECG_ITS ---
Test Reason : CHEST PAIN Blood Pressure : / mmHG Vent. Rate : 058 BPM Atrial Rate : 058 BPM P-R Int : 176 ms QRS Dur : 104 ms QT Int : 442 ms P-R-T Axes : 034 001 011 degrees QTc Int : 433 ms Sinus bradycardia Minimal voltage criteria for LVH, may be normal variant Borderline ECG When compared with ECG of 19-FEB-2021 23:35, No significant change was found Referred By: Salvador De Electronically Signed By:Serafin Ruggiero
[2021-02-20] MEDS: Acetaminophen 325 MG TABLET 650 MG PO (07:23)
[2021-02-20] MEDS: Clopidogrel Bisulfate 75 MG TABLET PO (08:03)
[2021-02-20] MEDS: Docusate Sodium 100 MG CAPSULE PO ×2 (08:03→20:04)
[2021-02-20] MEDS: Metoprolol Succinate ER 50 MG TAB.ER.24H PO (08:03)
[2021-02-20] MEDS: Atorvastatin Calcium 80 MG TABLET PO (08:03)
[2021-02-20] MEDS: Losartan Potassium 50 MG TABLET 100 MG PO (08:04)
[2021-02-20] MEDS: amLODIPine Besylate 5 MG TABLET PO (08:05)
--- NOTE | 2021-02-20 08:09 | MHC.CM.ED ---
PATIENT LIVES WITH AND FAMILY HCP IS AND ON FILE AND VERIFIED PCP IS DR RONNIE ALEXANDER OF [facility] BUT HE HAS RECENTLY BEEN SEEING A PROVIDER AT [address] [place] [address] ([facility]) HE IS UNABLE TO REMEMBER THE PROVIDER'S NAME. 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 HE DOES HAVE A CANE IN THE HOME BUT RARELY USES IT. NO VNA OR OUTSIDE SERVICES IMM 02/20 IN CHART.
[2021-02-20] MEDS: 0.9 % Sodium Chloride Flush 3 ML SYRINGE IVFLUSH ×3 (08:30→20:04)
--- NOTE | 2021-02-20 11:29 | PC.NURSE ---
x1 attempt to give report. awaiting callback
--- NOTE | 2021-02-20 12:41 | PM.IMPN ---
Subjective Subjective Date of Service: 02/20/21 <Maribell Armstrong NP - Last Filed: 02/20/21 17:00> 02/21/21 <Chris Silvestre MD - Last Filed: 02/21/21 16:21> Interval History: Follow chest pain No chest pain at this time <Maribell Armstrong NP - Last Filed: 02/20/21 17:00> Physical Exam Vital Signs: Vital Signs: Last Vital Signs Temp 97.7 F 02/20/21 12:00 Pulse 56 02/20/21 12:00 Resp 20 02/20/21 12:00 BP 135/81 02/20/21 12:00 Pulse Ox 100 02/20/21 12:00 Body Mass Index 39.4 <Maribell Armstrong NP - Last Filed: 02/20/21 17:00> Appearing in no acute distress lung sounds are clear to auscultation heart regular rate rhythm, clear S1, S2 positive bowel sounds, abdomen is soft, nontender neuro patient is alert x3, no focal deficits <Maribell Armstrong NP - Last Filed: 02/20/21 17:00> Objective Data Current Medications Generic Name Dose Route Start Last Admin Trade Name Freq PRN Reason Stop Dose Admin Acetaminophen 650 mg 02/20/21 00:28 02/20/21 07:23 Acetaminophen 325 Mg Tablet PO 650 mg Q6H PRN Administration Pain, Mild (Pain Scale 1-3) Amlodipine Besylate 5 mg 02/20/21 09:00 02/20/21 08:05 Amlodipine Besylate 5 Mg Tablet PO 5 mg DAILY YO Administration Protocol Atorvastatin Calcium 80 mg 02/20/21 09:00 02/20/21 08:03 Atorvastatin Calcium 80 Mg Tablet PO 80 mg DAILY YO Administration Clopidogrel Bisulfate 75 mg 02/20/21 09:00 02/20/21 08:03 Clopidogrel Bisulfate 75 Mg Tablet PO 75 mg DAILY YO Administration Docusate Sodium 100 mg 02/20/21 09:00 02/20/21 08:03 Docusate Sodium 100 Mg Capsule PO 100 mg BID YO Administration Enoxaparin Sodium 40 mg 02/20/21 01:00 02/20/21 00:49 Enoxaparin Sodium 40 Mg/0.4 Ml Syringe SUBCUT 40 mg Q24H YO Administration Fluticasone Propionate 1 spray 02/20/21 09:00 02/20/21 08:32 Fluticasone Propionate Nasal 16 Gm [place] NOSTRIL-B Not Given BID YO Losartan Potassium 100 mg 02/20/21 09:00 02/20/21 08:04 Losartan Potassium 50 Mg Tablet PO 100 mg DAILY YO Administration Protocol Magnesium Hydroxide 30 ml 02/20/21 00:28 Milk Of Magnesia 30 Ml Oral.Susp PO DAILY PRN Constipation Metoprolol Succinate 50 mg 02/20/21 09:00 02/20/21 08:03 Metoprolol Succinate Er 50 Mg Tab.Er.24h PO 50 mg DAILY YO Administration Protocol Nitroglycerin 0.4 mg 02/20/21 00:28 Nitroglycerin 0.4 Mg Tab.Subl SUBLINGUAL Q5M PRN Chest Pain Pharmacy Consult 1 each 02/19/21 17:57 Consult Rx Perform Med Rec MISCELLANE ONCE PRN Consult order Pharmacy Consult 1 each 02/20/21 00:25 Consult Rx Perform Med Rec MISCELLANE ONCE PRN Consult order Senna 17.2 mg 02/20/21 00:28 Sennosides 8.6 Mg Tablet PO BEDTIME PRN Constipation Sodium Chloride 3 ml 02/20/21 08:00 02/20/21 08:30 0.9 % Sodium Chloride Flush 3 Ml Syringe IVFLUSH 3 ml QSHIFT YO Administration <Maribell Armstrong NP - Last Filed: 02/20/21 17:00> Labs CBC & Chem 7: : 02/20/21 05:25 02/20/21 05:25 <Maribell Armstrong NP - Last Filed: 02/20/21 17:00> Labs: Laboratory Results - last 24 hr 02/19/21 02/19/21 02/19/21 18:19 18:19 18:19 MCV 85.1 MCH 28.3 MCHC 33.2 RDW 14.0 Plt Count 195 MPV 10.8 Immature Gran % (Auto) 0.2 Neut % (Auto) 66.3 Lymph % (Auto) 19.[address] [place] % (Auto) 10.3 Eos % (Auto) 3.1 Baso % (Auto) 0.4 Lymph # (Auto) 1.7 [place] # (Auto) 0.9 Eos # (Auto) 0.3 Baso # (Auto) 0.0 Abs Immat Gran (auto) 0.02 Absolute Neuts (auto) 5.6 Absolute Nucleated RBC 0.000 Nucleated RBC % (auto) 0.0 PT 11.8 INR 1.0 APTT 30.8 D-Dimer < 200 Anion Gap 13 Estim Creat Clear Calc 103.3 Estimated GFR > 60 Random Glucose 95 Calcium 9.1 Total Bilirubin 0.5 AST 24 ALT 29 Alkaline Phosphatase 71 Troponin I High Sens Total Protein 6.8 Albumin 4.3 Urine Color Urine Appearance Urine pH Ur Specific [place] Urine Protein Urine Glucose (UA) Urine Ketones Urine Blood Urine Nitrite Ur Leukocyte Esterase Urine RBC Urine WBC Ur Squamous Epith Cells Urine Bacteria 02/19/21 02/19/21 02/19/21 18:19 19:23 22:14 MCV MCH MCHC RDW Plt Count MPV Immature Gran % (Auto) Neut % (Auto) Lymph % (Auto) [place] % (Auto) Eos % (Auto) Baso % (Auto) Lymph # (Auto) [place] # (Auto) Eos # (Auto) Baso # (Auto) Abs Immat Gran (auto) Absolute Neuts (auto) Absolute Nucleated RBC Nucleated RBC % (auto) PT INR APTT D-Dimer Anion Gap Estim Creat Clear Calc Estimated GFR Random Glucose Calcium Total Bilirubin AST ALT Alkaline Phosphatase Troponin I High Sens < 3.5 < 3.5 Total Protein Albumin Urine Color YELLOW Urine Appearance CLEAR Urine pH 6.5 Ur Specific [place] 1.020 Urine Protein NEG Urine Glucose (UA) NEG Urine Ketones NEG Urine Blood NEG Urine Nitrite NEG Ur Leukocyte Esterase NEG Urine RBC 0-2 Urine WBC 0 Ur Squamous Epith Cells NONE Urine Bacteria TRACE 02/20/21 02/20/21 05:25 05:25 MCV 84.7 MCH 27.9 MCHC 33.0 RDW 13.8 Plt Count 169 MPV 10.7 Immature Gran % (Auto) 0.0 Neut % (Auto) 63.3 Lymph % (Auto) 23.4 [place] % (Auto) 9.2 Eos % (Auto) 3.7 Baso % (Auto) 0.4 Lymph # (Auto) 1.7 [place] # (Auto) 0.7 Eos # (Auto) 0.3 Baso # (Auto) 0.0 Abs Immat Gran (auto) 0.00 Absolute Neuts (auto) 4.6 Absolute Nucleated RBC 0.000 Nucleated RBC % (auto) 0.0 PT INR APTT D-Dimer Anion Gap 13 Estim Creat Clear Calc 126.9 Estimated GFR > 60 Random Glucose 101 Calcium 8.8 Total Bilirubin AST ALT Alkaline Phosphatase Troponin I High Sens Total Protein Albumin Urine Color Urine Appearance Urine pH Ur Specific [place] Urine Protein Urine Glucose (UA) Urine Ketones Urine Blood Urine Nitrite Ur Leukocyte Esterase Urine RBC Urine WBC Ur Squamous Epith Cells Urine Bacteria <Maribell Armstrong NP - Last Filed: 02/20/21 17:00> Progress Note: A&P (1) Chest pain: Status: Acute <Maribell Armstrong NP - Last Filed: 02/20/21 17:00> Assessment and Plan: 60-year-old male with a past medical history of hypertension, hyperlipidemia, coronary artery disease, cardiomyopathy with EF of 35%, asthma, due for elective catheterization on 02/27/21; history of angina presented to the hospital with a chief complaint of chest pain. Chest pain. Typical in nature. Currently improved. EKG x2 nonischemic. Troponins x2 negative. - Cardiology following likely be transferred to [facility] at some point for elective cardiac catheterization. - Monitor on telemetry -Sublingual nitroglycerin p.r.n... -Continue home statin, Plavix, beta-víctor Hypertension/hyperlipidemia -Continue home losartan, metoprolol, amlodipine DVT prophylaxis with Lovenox Code status: Full code attending-Dr. Silvestre <Maribell Armstrong NP - Last Filed: 02/20/21 17:00> Quality Stroke Does the patient have a stroke diagnosis?: No <Maribell Armstrong NP - Last Filed: 02/20/21 17:00> VTE Prior VTE?: No <Maribell Armstrong NP - Last Filed: 02/20/21 17:00> VTE Risk Level:: Medical - moderate - high <Maribell Armstrong NP - Last Filed: 02/20/21 17:00> VTE Device Contraindication: Treatment Not Indicated <Maribell Armstrong NP - Last Filed: 02/20/21 17:00> VTE Drug Contraindication: N/A - Med Ordered <Maribell Armstrong NP - Last Filed: 02/20/21 17:00>
[2021-02-20] MEDS: Fluticasone Propionate Nasal 16 GM SPRAY 1 SPRAY NOSTRIL-B (20:04)
[2021-02-21] MEDS: Enoxaparin Sodium 40 MG/0.4 ML SYRINGE SUBCUT (00:54)
[2021-02-21 03:41] VITALS: BP 134/84; PULSE 73; RESP 18; TEMP 36.6; O2SAT 97
[2021-02-21 07:28] VITALS: BP 140/89; PULSE 74; RESP 16; TEMP 36.6; O2SAT 98
[2021-02-21] MEDS: Docusate Sodium 100 MG CAPSULE PO (08:07)
[2021-02-21] MEDS: Losartan Potassium 50 MG TABLET 100 MG PO (08:07)
[2021-02-21] MEDS: Clopidogrel Bisulfate 75 MG TABLET PO (08:07)
[2021-02-21] MEDS: Atorvastatin Calcium 80 MG TABLET PO (08:07)
[2021-02-21] MEDS: amLODIPine Besylate 5 MG TABLET PO (08:08)
[2021-02-21] MEDS: Metoprolol Succinate ER 50 MG TAB.ER.24H PO (08:08)
[2021-02-21] MEDS: 0.9 % Sodium Chloride Flush 3 ML SYRINGE IVFLUSH (08:09)
--- NOTE | 2021-02-21 09:52 | P.CONCA_ITS ---
History of Present Illness History of Present Illness Date of Service: 02/21/21 Requesting physician: Chris Silvestre Chief complaint: CP, cardiomyopathy Narrative: 60-year-old gentleman with known history of nonischemic cardiomyopathy. Recent echocardiography showed EF of 35-40%. He was due to get diagnostic angiogram next week. He is admitted with left-sided chest pressure as well as shortness of breath. This happened at rest. His cardiac enzymes and EKG were normal. He said he gets this feeling off and on usually at rest. He walks 2-3 miles every other da y and does not get any exertional symptoms. After discussion with him he was admitted because he wanted to get cardiac catheterization earlier because he was very anxious. [facility] Past Medical History Medical History (Updated 02/20/21 @ 01:00 by Brian Hancock NP) Atherosclerotic cardiovascular disease Essential hypertension HTN (hypertension) NICM (nonischemic cardiomyopathy) Family History Family History Father Pacemaker CVD (cardiovascular disease) HTN (hypertension) Mother CVD (cardiovascular disease) Asthma Surgical History Surgical History History of bilateral knee arthroplasty History of cardiac catheterization (~12/2013) Social History Social History (Updated 02/14/21 @ 13:17 by QASIM Benites) Household Members: Spouse and Children Do you presently have visiting nurse or other home services: No Alcohol intake: current Alcohol intake frequency: holidays/special occasions only Alcohol type: beer Patient Tobacco Use Status: Current someday Tobacco user Cigarette Packs Per Day: 0.5 Use of substances other than those prescribed or required for medical reasons: No Currently Displaying Signs/Symptoms of Drug Intoxication Withdrawal: No Do you feel safe in your current relationship?: Yes Advance Directives: No Advance Directives Information Provided: Yes Do you have thoughts of harming others: None Do you have a plan to hurt others: No Plan Recently lost weight without trying: No Meds Allergies Allergy/AdvReac Type Severity Reaction Status Date / Time aspirin [Aspirin] Allergy Severe SWELLING, Verified 02/14/21 13:16 rash/edema ibuprofen [Ibuprofen] Allergy Severe SWELLING, Verified 02/14/21 13:16 rash/edema Penicillins Allergy Severe SWELLING Verified 02/14/21 13:16 Active Medications: Current Medications Generic Name Dose Route Start Last Admin Trade Name Raviq PRN Reason Stop Dose Admin Acetaminophen 650 mg 02/20/21 00:28 02/20/21 07:23 Acetaminophen 325 Mg Tablet PO 650 mg Q6H PRN Administration Pain, Mild (Pain Scale 1-3) Amlodipine Besylate 5 mg 02/20/21 09:00 02/21/21 08:08 Amlodipine Besylate 5 Mg Tablet PO 5 mg DAILY YO Administration Protocol Atorvastatin Calcium 80 mg 02/20/21 09:00 02/21/21 08:07 Atorvastatin Calcium 80 Mg Tablet PO 80 mg DAILY YO Administration Clopidogrel Bisulfate 75 mg 02/20/21 09:00 02/21/21 08:07 Clopidogrel Bisulfate 75 Mg Tablet PO 75 mg DAILY YO Administration Docusate Sodium 100 mg 02/20/21 09:00 02/21/21 08:07 Docusate Sodium 100 Mg Capsule PO 100 mg BID YO Administration Enoxaparin Sodium 40 mg 02/20/21 01:00 02/21/21 00:54 Enoxaparin Sodium 40 Mg/0.4 Ml Syringe SUBCUT 40 mg Q24H YO Administration Fluticasone Propionate 1 spray 02/20/21 09:00 02/20/21 20:04 Fluticasone Propionate Nasal 16 Gm [place] NOSTRIL-B 1 spray BID YO Administration Losartan Potassium 100 mg 02/20/21 09:00 02/21/21 08:07 Losartan Potassium 50 Mg Tablet PO 100 mg DAILY YO Administration Protocol Magnesium Hydroxide 30 ml 02/20/21 00:28 Milk Of Magnesia 30 Ml Oral.Susp PO DAILY PRN Constipation Metoprolol Succinate 50 mg 02/20/21 09:00 02/21/21 08:08 Metoprolol Succinate Er 50 Mg Tab.Er.24h PO 50 mg DAILY YO Administration Protocol Nitroglycerin 0.4 mg 02/20/21 00:28 Nitroglycerin 0.4 Mg Tab.Subl SUBLINGUAL Q5M PRN Chest Pain Pharmacy Consult 1 each 02/19/21 17:57 Consult Rx Perform Med Rec MISCELLANE ONCE PRN Consult order Pharmacy Consult 1 each 02/20/21 00:25 Consult Rx Perform Med Rec MISCELLANE ONCE PRN Consult order Senna 17.2 mg 02/20/21 00:28 Sennosides 8.6 Mg Tablet PO BEDTIME PRN Constipation Sodium Chloride 3 ml 02/20/21 08:00 02/21/21 08:09 0.9 % Sodium Chloride Flush 3 Ml Syringe IVFLUSH 3 ml Q[facility] Administration Home Medications Medication Instructions Recorded Confirmed Last Taken Type albuterol sulfate 90 mcg/actuation 1 - 2 puff INHALATION Q4-6H PRN 08/08/20 02/19/21 Unknown History aerosol inhaler atorvastatin 80 mg tablet 80 mg PO DAILY 08/08/20 02/19/21 Unknown History clopidogrel 75 mg tablet 75 mg PO DAILY 08/08/20 02/19/21 Unknown History fluticasone propionate 230 1 puff PO BID 08/08/20 02/19/21 Unknown History mcg-salmeterol 21 mcg/actuation HFA inhaler fluticasone propionate 50 1 spray INTRANASAL BID 08/08/20 02/19/21 Unknown History mcg/actuation nasal spray,suspension metoprolol succinate 50 mg 50 mg PO DAILY 08/08/20 02/19/21 Unknown History tablet,extended release 24 hr acetaminophen 500 mg tablet 1,000 mg PO Q6H PRN 12/15/20 02/19/21 Unknown History Physical Exam Vital Signs: Vital Signs: Last Vital Signs Temp 98 F 02/21/21 07:28 Pulse 74 02/21/21 07:28 Resp 16 02/21/21 07:28 BP 140/89 H 02/21/21 07:28 Pulse Ox 98 02/21/21 07:28 Body Mass Index 39.4 GENERAL APPEARANCE: in no acute distress, pleasant. NECK: no carotid bruit, no jugular venous distention. SKIN: no suspicious lesions, warm and dry. HEART: no murmurs, regular rate and rhythm. LUNGS: clear to auscultation bilaterally. ABDOMEN: soft, nontender. EXTREMITIES: no edema. PERIPHERAL PULSES: equal. NEUROLOGIC: No gross deficits, AAO X 3 Results Labs and Meds Result diagrams: 02/20/21 05:25 02/20/21 05:25 Assessment and Plan (1) Chest pain: Status: Acute (2) NICM (nonischemic cardiomyopathy): Status: Acute 60-year-old gentleman presenting for chest pressure at rest with negative enzymes and EKGs. He has nonischemic cardiomyopathy with regional wall motion abnormalities on recent echocardiogram an EF of 35-40%. Clinically stable right now. I discussed with him that he can go home and potentially get his cardiac catheterization on Friday next week but he is quite anxious and wishes to be transferred to [facility] undergo cardiac catheterization tomorrow. Will transfer him to [facility] and do a diagnostic angiogram on him tomorrow. In the meantime his medication has been is quite good and his blood pressure is optimally controlled right now. Clinically not in heart failure right now. Thank you for allowing me to participate in the care of your patient. Please feel free to contact me if you have any questions. Procedures Date of Service Date of Service: 02/21/21
[2021-02-21 11:11] VITALS: BP 131/86; PULSE 69; RESP 18; TEMP 36.8; O2SAT 98
--- NOTE | 2021-02-21 11:28 | P.DS_ITS ---
DS: Providers Provider Date of Service: 02/21/21 <Maribell Armstrong NP - Last Filed: 02/21/21 14:16> 02/21/21 <Chris Silvestre MD - Last Filed: 02/22/21 08:43> Date of admission: 02/20/21 00:28 <Maribell Armstrong NP - Last Filed: 02/21/21 14:16> Date of discharge: 02/21/21 <Maribell Armstrong NP - Last Filed: 02/21/21 14:16> 02/21/21 <Chris Silvestre MD - Last Filed: 02/22/21 08:43> Primary care physician: Wilver Black MD <Maribell Armstrong NP - Last Filed: 02/21/21 14:16> Admitting clinician: Salvador De <Maribell Armstrong NP - Last Filed: 02/21/21 14:16> Attending physician on admission: Salvador De <Maribell Armstrong NP - Last Filed: 02/21/21 14:16> Consults: 02/21/21 09:10 Consult to Cardiology Routine Consulting Provider[place] [facility] Reason for consultation: chest pain <Maribell Armstrong NP - Last Filed: 02/21/21 14:16> Attending physician on discharge: Chris Silvestre <Maribell Armstrong NP - Last Filed: 02/21/21 14:16> Discharging clinician: Maribell Armstrong <Maribell Armstrong NP - Last Filed: 02/21/21 14:16> DS: Diagnosis Discharge Diagnosis (1) Chest pain: Status: Acute <Maribell Armstrong NP - Last Filed: 02/21/21 14:16> DS: Medications Discharge Medications Home Medications: Home Medications Medication Instructions Recorded Confirmed albuterol sulfate 90 mcg/actuation 1 - 2 puff INHALATION Q4-6H PRN 08/08/20 02/19/21 aerosol inhaler atorvastatin 80 mg tablet 80 mg PO DAILY 08/08/20 02/19/21 clopidogrel 75 mg tablet 75 mg PO DAILY 08/08/20 02/19/21 fluticasone propionate 230 1 puff PO BID 08/08/20 02/19/21 mcg-salmeterol 21 mcg/actuation HFA inhaler fluticasone propionate 50 1 spray INTRANASAL BID 08/08/20 02/19/21 mcg/actuation nasal spray,suspension metoprolol succinate 50 mg 50 mg PO DAILY 08/08/20 02/19/21 tablet,extended release 24 hr acetaminophen 500 mg tablet 1,000 mg PO Q6H PRN 12/15/20 02/19/21 Previous Rx's Medication Instructions Recorded losartan 100 mg tablet 100 mg PO DAILY #90 tab 12/22/20 amlodipine 5 mg tablet 5 mg PO DAILY 90 Days #90 tab 01/26/21 <Maribell Armstrong NP - Last Filed: 02/21/21 14:16> DS: Summary Hospital Course Hospital Course: 60-year-old male with a past medical history of hypertension, hyperlipidemia, CAD, asthma, history of pacemaker, osteoarthritis, nonischemic cardiomyopathy with the EF of 35%, angina presented to the hospital with a chief complaint of chest pain. Patient reports he has been having intermittent episodes of chest pain, squeezing in nature.; current episode started 40 minutes prior to coming to the hospital. Denies any fever chills cough. The patient reported that he has been scheduled for elective catheterization on 02/27/2021. Per ER team patient chest pain improved. Given nitroglycerin. EKG x2 showed no acute ischemic changes. Discussed with Dr. caballero-> who recommended to admit the patient and will do an elective catheterization on Friday. Did not recommend heparin drip. Also mentioned patient can go home if he feels comfortable. But patient decided to stay in hospital. Coronary artery disease /chest pain. Patient was history of nonischemic cardiomyopathy most recent echo showing EF 35-40% he was scheduled for cardiac catheterization on February 27 however he presented to the ER with shortness of breath and chest pain at rest. His high sensitivity troponins were negative and EKG did not show any acute ST wave abnormality. He reports that he is pretty active and when he is doing exercise he does not get this pain but when he is resting he feels the discomfort. He was initially offered to be discharged from the emergency department but elected to stay. After being seen and examined by the packing supervisor and it was decided that he would be transferred to [facility] to undergo cardiac catheterization tomorrow. at this time patient is hemodynamically stable with optimal blood pressure control, no heart failure and only on and off chest discomfort. Patient is safe for discharge/ Transfer to tertiary facility. Attending Attestation: Patient seen and examined independently and I was present during godfrey portion of E/M service. Agree with Leola Armstrong NP's history, physical, assessment, and plan. <Maribell Armstrong NP - Last Filed: 02/21/21 14:16> Time Spent with Patient Time attestation: Total time spent providing and/or coordinating discharge services: <Maribell Armstrong NP - Last Filed: 02/21/21 14:16> Discharge coordination time: Greater than 30 minutes <Maribell Armstrong NP - Last Filed: 02/21/21 14:16> Quality: Stroke Does the patient have a stroke diagnosis?: No <Maribell Armstrong NP - Last Filed: 02/21/21 14:16> Physical Exam Vital Signs: Vital Signs: Last Vital Signs Temp 98.2 F 02/21/21 11:11 Pulse 69 02/21/21 11:11 Resp 18 02/21/21 11:11 BP 131/86 02/21/21 11:11 Pulse Ox 98 02/21/21 11:11 Body Mass Index 39.4 <Maribell Armstrong NP - Last Filed: 02/21/21 14:16> Appearing in no acute distress head is normocephalic atraumatic eyes pupils are PERRLA sclera is anicteric mouth throat mucous membranes are intact and moist neck is supple no lymphadenopathy, no JVD noted lung sounds are clear to auscultation heart regular rate rhythm, clear S1, S2 positive bowel sounds, abdomen is soft, nontender neuro patient is alert x3, no focal deficits <Maribell Armstrong NP - Last Filed: 02/21/21 14:16> Discharge Plan Discharge Anticipated Discharge Date/Time: 02/21/21 11:24 <Maribell Armstrong NP - Last Filed: 02/21/21 14:16> Patient Disposition: [facility] <Maribell Armstrong NP - Last Filed: 02/21/21 14:16> Discharge Diagnosis: Chest pain /angina CAD <Maribell Armstrong NP - Last Filed: 02/21/21 14:16> Chest pain /angina CAD <Chris Silvestre MD - Last Filed: 02/22/21 08:43> Referrals: Wilver Black MD [Primary Care Provider] - 1 Week <Maribell Armstrong NP - Last Filed: 02/21/21 14:16> Discharge Medications: Continued losartan 100 mg tablet 100 mg PO DAILY Qty: 90 RF: 3 amlodipine 5 mg tablet 5 mg PO DAILY 90 Days Qty: 90 RF: 1 acetaminophen 500 mg tablet 1,000 mg PO Q6H PRN (Reason: Pain) RF: 0 metoprolol succinate 50 mg tablet extended release 24 hr 50 mg PO DAILY RF: 0 clopidogrel 75 mg tablet 75 mg PO DAILY RF: 0 fluticasone propion-salmeterol 230-21 mcg/actuation HFA aerosol inhaler 1 puff PO BID RF: 0 albuterol sulfate 90 mcg/actuation HFA aerosol inhaler 1 - 2 puff inhalation Q4-6H PRN (Reason: wheezing) RF: 0 atorvastatin 80 mg tablet 80 mg PO DAILY RF: 0 fluticasone propionate 50 mcg/actuation spray,suspension 1 spray intranasal BID RF: 0 <Maribell Armstrong NP - Last Filed: 02/21/21 14:16> Discharge Orders: Discharge Order (Routine); Ordered 02/21/21 Ordered By: Maribell Armstrong <Maribell Armstrong NP - Last Filed: 02/21/21 14:16> Diet: advance to usual diet <Maribell Armstrong NP - Last Filed: 02/21/21 14:16> advance to usual diet <Chris Silvestre MD - Last Filed: 02/22/21 08:43> Activity on Discharge: As tolerated <Maribell Armstrong NP - Last Filed: 02/21/21 14:16> As tolerated <Chris Silvestre MD - Last Filed: 02/22/21 08:43> Stand Alone Forms: Patient Portal Discharge page <Maribell Armstrong NP - Last Filed: 02/21/21 14:16> Care Plan Goals: Transfer to [facility] for cardiac catheterization resolution of cardiac symptoms <Maribell Armstrong NP - Last Filed: 02/21/21 14:16> Health Concerns: Chest pain Coronary artery disease <Maribell Armstrong NP - Last Filed: 02/21/21 14:16> Plan of Treatment: Transfer to [facility] for cardiac catheterization <Maribell Armstrong NP - Last Filed: 02/21/21 14:16> Assessment: see discharge summary <Maribell Armstrong NP - Last Filed: 02/21/21 14:16> Discharge Date/Time: 02/21/21 14:13 <Maribell Armstrong NP - Last Filed: 02/21/21 14:16>
== END 2021-02-21 14:13 | disposition short-term general hospital (02) | DRG 303 ==
LOC: HO.ED 02-20 01:00 → HO.EDOVER 02-20 01:32 → HO.IMC 02-20 11:06
PROVIDERS: Nurse Practitioner Primary Care; Admitting Provider Hospitalist; Emergency Provider Emergency Medicine; PCP Internal Medicine; Visit Provider Family Medicine
DX: I25.119 Atherosclerotic heart disease of native coronary artery with unspecified angina pectoris (principal); I42.8 Other cardiomyopathies; E66.01 Morbid (severe) obesity due to excess calories; F17.200 Nicotine dependence, unspecified, uncomplicated; Z95.0 Presence of cardiac pacemaker; Z71.6 Tobacco abuse counseling; Z68.39 Body mass index [BMI] 39.0-39.9, adult; E78.5 Hyperlipidemia, unspecified; I10 Essential (primary) hypertension; Z96.653 Presence of artificial knee joint, bilateral; Z88.0 Allergy status to penicillin; Z88.6 Allergy status to analgesic agent; Z79.02 Long term (current) use of antithrombotics/antiplatelets; Z79.51 Long term (current) use of inhaled steroids; Z79.899 Other long term (current) drug therapy
CPT/HCPCS: 36415; 71045; 80048; 80053; 81001; 84484; 85025; 85379; 85610; 85730; 93005; 99285; J1650

== ENCOUNTER → 2021-03-07 08:45 | Outpatient (REF) | payer MEDICARE, MEDICAID, SELFPAY | LOC: HO.SL 08:45 | PROVIDERS: PCP Internal Medicine; Visit Provider Internal Medicine | DX: G47.33 Obstructive sleep apnea (adult) (pediatric) (principal) | CPT/HCPCS: 95806 ==

== ENCOUNTER → 2021-04-19 13:23 | Outpatient (BNVA) | payer MEDICARE, MEDICAID, SELFPAY | PROVIDERS: PCP Internal Medicine; Visit Provider Internal Medicine | DX: I25.10 Atherosclerotic heart disease of native coronary artery without angina pectoris (principal); I42.8 Other cardiomyopathies; G47.33 Obstructive sleep apnea (adult) (pediatric); I10 Essential (primary) hypertension; F17.210 Nicotine dependence, cigarettes, uncomplicated; Z95.1 Presence of aortocoronary bypass graft; Z98.890 Other specified postprocedural states; Z88.6 Allergy status to analgesic agent; Z88.0 Allergy status to penicillin; Z79.899 Other long term (current) drug therapy | CPT/HCPCS: 93005; 99212 ==

== ENCOUNTER → 2021-05-25 12:43 | Outpatient (REF) | payer MEDICARE, MEDICAID, SELFPAY ==
--- NOTE | 2021-05-25 12:47 | CA_ITS ---
Transthoracic Echocardiogram Patient (Last, First, Middle): Solomon Álvarez M Gender: Male Date of : 1960 Age: 60 Procedure Date: 05/25/2021 Procedure Type: Transthoracic Echocardiogram Location: OP Height: 177.8 cm Weight: 117.94 kg BSA: 2.33 m2 Heart Rate: bpm BP: 116 / 70 mmHg Business Services Associate: ZENIA/FRANCESCO Referring MD: Jovany Lazcano MD Easter Bunny: Irineo Rodriguez MD Symptoms: I25.10 - Atherosclerotic heart disease of ione coronary... Study Quality: Fair ECG Rhythm: Sinus Conclusions: - 1. Mildly reduced LV ejection fraction 45-50% with grade 1 diastolic dysfunction 2. Trivial aortic regurgitation 3. Normal RV systolic pressure 4. No gross pericardial effusion Findings Left Ventricle Normal left ventricular cavity size. There is normal left ventricular wall thickness. The left ventricular systolic function is mildly decreased. The visually estimated ejection fraction is between 45-50%. Regional wall motion abnormalities can not be excluded due to suboptimal endocardial definition. There is paradoxical septal motion consistent with post-operative status. Spectral Doppler is indicative of an impaired relaxation filling pattern. E/E prime ratio is <8, consistent with normal filling pressures. Evidence suggests grade I (mild) diastolic dysfunction. Wall Motion Rest Echo Findings The basal inferior and basal inferoseptal segments are akinetic. Right Ventricle The right ventricle was not well visualized. There is borderline right ventricular systolic function. Atria The left atrium is mildly dilated. There is no evidence of interatrial shunt. The right atrium was not well visualized. Aortic Valve The aortic valve was not well visualized. There is no aortic valve stenosis. There is trace (trivial) aortic valve regurgitation. Mitral Valve There is mild anterior and posterior mitral leaflet thickening. There is trace mitral valve regurgitation. There is no mitral valve stenosis. Pulmonic Valve The pulmonic valve was not well visualized. Tricuspid Valve There is trace tricuspid valve regurgitation. The right ventricular systolic pressure is normal. The right ventricular systolic pressure is 29 mmHg. There is no evidence of pulmonary hypertension. Great Vessels All visible segments of the aorta are normal in size. The pulmonary artery was not well visualized. Venous The inferior vena cava is normal in size. Pericardium/Pleural There is no evidence of pericardial effusion. Prior Study Comparison Changes noted compared to prior study dated: 02/02/2021. LV systolic function is improved Recommendations, Care & Conclusions Recommend contrast in the future to improve endocardial definition. Measurements 2D Linear Measurements IVSd: 0.91 0.6-0.9/0.6-1.0 cm LVIDd: 6.56 3.9-5.3/4.2-5.9 cm LVIDd Index: 2.82 2.4-3.2/2.2-3.1 cm/m2 LVIDs: 4.57 2.0-3.6 cm LVPWd: 0.95 0.7-1.1 cm Ao Root: 3.70 2.1-3.5 cm LA Diam: 4.30 2.7-3.8/3.0-4.0 cm LAIDs Index: 1.85 1.5-2.3 cm/m2 LV Mass: 327.01 67-162/88-224 g LV Mass Index: 140.35 43-95/49-115 g/m2 LVOT Diam: 2.20 3.0+(-)1.3 cm 2D Systolic Function EF 4C: 50.30 >55% EF 2C: 44.60 >55% EF BiP: 49.10 >55% Mitral Valve MV Pk E: 0.57 MV PK A: 0.58 MV Decel Time: 272.00 E/A: 1.00 E'Lateral: 12.60 E'Medial: 8.38 E/E' Med: 6.80 E/E' Lat: 4.50 PHT: 80.00 MVA PHT: 2.75 Decel Alexander: 2.09 Aortic Valve AoV Pk Jorge A: 1.20 AoV Mn Jorge A: 0.92 AoV VTI: 0.26 AoV Pk Grad: 6.00 Aov Mn Grad: 4.00 PAOLA Cont.VTI: 2.44 LVOT LVOT Pk Jorge A: 0.89 LVOT Mn Jorge A: 0.62 LVOT VTI: 0.17 LVOT Pk Grad: 3.00 LVOT Mn Grad: 2.00 LVOT Diam: 2.20 LVOT Area: 3.80 Diastolic Function MV Pk E: 0.57 MV Pk A: 0.58 E/A: 1.00 E'Medial: 8.38 E/E' Med: 6.80 E' Laterial: 12.60 E/E' Lat: 4.50 Tricuspid Valve TR Pk Jorge A: 2.55 TR Pk Grad: 26.00 RA Press: 3.00 RVSP: 29.00 Great Vessels Aorta Ao Root-2D: 3.70 2.0-3.7 cm Ao Asc: 3.50 2.1-3.4 cm Ao Arch: 3.50 Updated in Other Vendor System with Status of Final Irineo Rodriguez MD electronically signed on 05/25/2021 4:39:45 PM with status of Final
== END ==
LOC: HO.CARD 12:43
PROVIDERS: PCP Internal Medicine; Visit Provider Internal Medicine
DX: I25.10 Atherosclerotic heart disease of native coronary artery without angina pectoris (principal); I42.9 Cardiomyopathy, unspecified
CPT/HCPCS: 93306

== ENCOUNTER → 2021-06-21 12:47 | Outpatient (BNVA) | payer MEDICARE, MEDICAID, SELFPAY | PROVIDERS: PCP Internal Medicine; Referring Provider Internal Medicine; Visit Provider Internal Medicine | DX: I25.10 Atherosclerotic heart disease of native coronary artery without angina pectoris (principal); I42.9 Cardiomyopathy, unspecified; I10 Essential (primary) hypertension; G47.33 Obstructive sleep apnea (adult) (pediatric) | CPT/HCPCS: 99212 ==

== ENCOUNTER 2021-06-29 09:25 | Emergency (ER) | payer MEDICARE, MEDICAID, SELFPAY ==
--- NOTE | ~2021-06-29 | XR_ITS ---
EXAMINATION: XR CHEST CLINICAL INFORMATION: Shortness of breath COMPARISON: Chest radiographs 02/19/2021, 09/13/2020, 10/01/2019 TECHNIQUE: Frontal view of the chest was obtained. FINDINGS: There is been prior median sternotomy. Short linear scar present left lateral base similar to prior studies. The heart is normal in size. The vascularity is normal. There is no pneumothorax. There is questionable groundglass opacity lateral left apex. The remainder the lungs are clear. No lobar or segmental airspace consolidation. The costophrenic sulci are well-defined. XR/XR chest 1V IMPRESSION: Subtle groundglass opacity left lateral apex. No lobar or segmental airspace consolidation, vascular congestion, or effusion.
[2021-06-29 09:46] VITALS: BP 120/85; PULSE 101; RESP 18; TEMP 36.6; O2SAT 97; BMI 37.5
--- NOTE | 2021-06-29 09:55 | ED.URI ---
HPI - URI/Sore Throat General Chief Complaint: Upper Respiratory Symptoms Stated Complaint: flu like symptoms Time Seen by Provider: 06/29/21 09:53 Source: patient Mode of arrival: ambulatory Limitations: no limitations History of Present Illness HPI Narrative: 60-year-old male with a history of nonischemic cardiomyopathy with EF of 35-40%, s/p PPM, history CAD s/p double bypass surgery in March of 2021, HTN, JUDSON, history of asthma who presents to the ER with chest congestion, dry cough, headache, body aches, nausea that started yesterday. He reports this started after he was vacuuming and went to go throw out the dust and debris when he dropped the container and all of the dust got into his face he has no known sick contacts and is fully vaccinated COVID-19. He denies any fever but he did have chills last night. He is not bringing up any phlegm but his chest is very congested. He has some shortness of breath when he has a coughing fit but non with exertion or at rest. He has no chest pain. No nausea, vomiting, diarrhea, abdominal pain. He used his asthma albuterol nebulizer before coming into the ER with some improvement. He denies any audible wheezing or swelling in his legs. He was around his granddaughter last week who was sick with similar symptoms, she was negative for COVID-19. MD elicited complaint: cough, nasal congestion and other (Body aches and headache) Pertinent past history: asthma and seasonal allergies Onset (ago): day(s) (1) Consistency: intermittent and progressively worsening Severity: moderate Able to tolerate fluids by mouth: Yes Exacerbating factors: nothing Relieving factors: other (Nebulizer treatment) Associated symptoms: chills, myalgias, nasal congestion, cough and shortness of breath Treatments prior to arrival: other (Nebulizer treatment) Related Data Home Medications Medication Instructions Recorded Confirmed albuterol sulfate 90 mcg/actuation 1 - 2 puff INHALATION Q4-6H PRN 08/08/20 06/21/21 aerosol inhaler atorvastatin 80 mg tablet 80 mg PO DAILY 08/08/20 06/21/21 clopidogrel 75 mg tablet 75 mg PO DAILY 08/08/20 06/21/21 fluticasone propionate 230 1 puff PO BID 08/08/20 06/21/21 mcg-salmeterol 21 mcg/actuation HFA inhaler fluticasone propionate 50 1 spray INTRANASAL BID 08/08/20 06/21/21 mcg/actuation nasal spray,suspension acetaminophen 500 mg tablet 1,000 mg PO Q6H PRN 12/15/20 06/21/21 metoprolol succinate 50 mg 50 mg PO DAILY 06/21/21 06/21/21 tablet,extended release 24 hr Previous Rx's Medication Instructions Recorded amlodipine 5 mg tablet 5 mg PO DAILY 90 Days #90 tab 01/26/21 furosemide 40 mg tablet 40 mg PO DAILY #90 tab 06/21/21 azithromycin 250 mg tablet See Rx Instructions .ROUTE 06/29/21 (Zithromax Z-Gary) .COMPLEX #6 tab cefpodoxime 200 mg tablet 200 mg PO BID #14 tab 06/29/21 guaifenesin 1,200 mg tablet, 1,200 mg PO BID #14 tab 06/29/21 extended release 12 hr (Mucinex) prednisone 20 mg tablet 40 mg PO DAILY #10 tab 06/29/21 Allergies Allergy/AdvReac Type Severity Reaction Status Date / Time aspirin [Aspirin] Allergy Severe SWELLING, Verified 06/21/21 13:12 rash/edema ibuprofen [Ibuprofen] Allergy Severe SWELLING, Verified 06/21/21 13:12 rash/edema Penicillins Allergy Severe SWELLING Verified 06/21/21 13:12 Review of Systems Review of Systems: Constitutional: No Fever, + Chills ENT/Mouth: No sore throat, No Rhinorrhea, No Swallowing Difficulty Cardiovascular: No Chest Pain, + SOB, No Orthopnea, No Edema Respiratory: + Cough, No Sputum, No Wheezing, No dyspnea Gastrointestinal: + Nausea, No Vomiting, No Diarrhea, No abdominal Pain Genitourinary: No Dysuria, No Urinary Frequency, No Hematuria Musculoskeletal: No joint pain, + Myalgias Skin: No Skin Lesions, No rash Neuro: No Weakness, No Numbness, No Dizziness, No Headache Psych: No Anxiety/Panic, No Depression Heme/Lymph: No Bruising, No Lymphadenopathy PMFSH Past Medical History Medical History (Updated 06/29/21 @ 11:05 by INESSA Maurer) Asthma Atherosclerotic cardiovascular disease Essential hypertension HTN (hypertension) NICM (nonischemic cardiomyopathy) Surgical History History of bilateral knee arthroplasty History of cardiac catheterization (~12/2013) History of coronary artery bypass graft x 2 (~03/13/21) Family History Family History Father Pacemaker CVD (cardiovascular disease) HTN (hypertension) Mother CVD (cardiovascular disease) Asthma Social History Social History Household Members: Spouse and Children Housing: Apartment Do you presently have visiting nurse or other home services: No Alcohol intake: current Alcohol intake frequency: holidays/special occasions only Alcohol type: beer Patient Tobacco Use Status: Current someday Tobacco user e-Cigarette/Vaping Use: Never Used Second Hand Smoke Exposure: No Advance Directives: Yes Advance Directives Information Provided: Yes Advance Directives on File: No service: No Current occupational status: disabled Physical Exam Vital Signs: Vital Signs: Last Vital Signs Temp 97.8 F 06/29/21 09:46 Pulse 101 H 06/29/21 09:46 Resp 18 06/29/21 09:46 BP 120/85 06/29/21 09:46 Pulse Ox 97 06/29/21 09:46 Body Mass Index 37.5 Appearance: Alert. Oriented X3. No acute distress. Eyes: Pupils equal, round and reactive to light. ENT: Pharynx normal. No tonsillar swelling or exudate. Uvula midline. Moist mucous membranes. Normal tympanic membranes bilaterally. Neck: Normal inspection. Neck supple. CVS: Normal heart rate and rhythm. Pulses normal. Respiratory: No respiratory distress. Breath sounds normal. Skin: Skin warm and dry. Normal skin color. Normal skin turgor. No rashes. Extremities: No lower extremity edema. No calf tenderness Neuro: Oriented X 3. Grossly normal, nonfocal Course Course Course Narrative: 60-year-old female with a history of nonischemic cardiomyopathy, coronary artery disease status post bypass earlier this summer who presents with chest congestion, dry cough, nausea, body aches, headache, chills. He is fully vaccinated for COVID-19. He is slightly tachycardic on arrival but he states he just uses albuterol nebulizer before coming in with improvement in his shortness of breath and wheezing. There are no wheezes on exam and he is speaking complete sentences. No respiratory distress. Will get chest x-ray and viral PCR. Reevaluation(s) Reevaluation #1: CXR with subtle groundglass opacity left lateral apex. Viral PCR is negative. Will treat for CAP. Patient will follow up with his PCP early next week. Stable for d/c home. MDM - URI/Sore Throat Lab Data Labs: Lab Results 06/29/21 Range/Units 10:11 Influenza Type A (PCR) NEGATIVE (Negative) Influenza Type B (PCR) NEGATIVE (Negative) RSV RNA Qual (PCR) NEGATIVE (Negative) SARS-CoV-2 RNA (RT-PCR) NEGATIVE (Negative) Discharge Plan Discharge Clinical Impression: Pneumonia Qualifiers: Pneumonia type: due to unspecified organism Laterality: left Lung location: unspecified part of lung Qualified Code(s): J18.9 - Pneumonia, unspecified organism Patient Disposition: Home, Self-Care Instructions: Community Acquired Pneumonia (ED) Additional Instructions: Urine negative for COVID, flu, and RSV. Your x-ray showed a very small left-sided opacity, consistent with early pneumonia. Take the prescribed antibiotics as directed. Take the prescribed prednisone for 5 days. Continue using your inhalers and nebulizers at home. Follow-up with your doctor early next week. Rest and stay hydrated If you develop new or worsening symptoms call 911 or come back to the ER for further evaluation. Prescriptions: New cefpodoxime 200 mg tablet 200 mg PO BID Qty: 14 RF: 0 azithromycin [Zithromax Z-Gary] 250 mg tablet See Rx Instructions .ROUTE .COMPLEX Qty: 6 RF: 0 prednisone 20 mg tablet 40 mg PO DAILY Qty: 10 RF: 0 Mucinex 1,200 mg tablet extended release 12hr 1,200 mg PO BID Qty: 14 RF: 0 No Action amlodipine 5 mg tablet 5 mg PO DAILY 90 Days Qty: 90 RF: 1 acetaminophen 500 mg tablet 1,000 mg PO Q6H PRN (Reason: Pain) RF: 0 clopidogrel 75 mg tablet 75 mg PO DAILY RF: 0 fluticasone propion-salmeterol 230-21 mcg/actuation HFA aerosol inhaler 1 puff PO BID RF: 0 albuterol sulfate 90 mcg/actuation HFA aerosol inhaler 1 - 2 puff inhalation Q4-6H PRN (Reason: wheezing) RF: 0 atorvastatin 80 mg tablet 80 mg PO DAILY RF: 0 fluticasone propionate 50 mcg/actuation spray,suspension 1 spray intranasal BID RF: 0 furosemide 40 mg tablet 40 mg PO DAILY Qty: 90 RF: 4 metoprolol succinate 50 mg tablet extended release 24 hr 50 mg PO DAILY RF: 0 Interventions: ED Discharge Assessment Last Done: 06/29/21 11:25 Discharge Date/Time: 06/29/21 11:26
[2021-06-29 10:58] LABS: Influenza A PCR NEGATIVE (Negative); Influenza B PCR NEGATIVE (Negative); Resp Syncy Virus RNA Qual PCR NEGATIVE (Negative); SARS COV2 PCR INHOUSE NEGATIVE (Negative)
== END 2021-06-29 11:26 | disposition home or self-care (01) ==
PROVIDERS: Physician Assistant; Emergency Provider Emergency Medicine; PCP Internal Medicine
DX: J18.9 Pneumonia, unspecified organism (principal); I25.10 Atherosclerotic heart disease of native coronary artery without angina pectoris; I42.8 Other cardiomyopathies; I10 Essential (primary) hypertension; J45.909 Unspecified asthma, uncomplicated; Z79.899 Other long term (current) drug therapy; Z20.822 Contact with and (suspected) exposure to COVID-19; Z95.1 Presence of aortocoronary bypass graft
CPT/HCPCS: 0241U; 36415; 71045; 99283

== ENCOUNTER 2021-08-02 15:24 | Outpatient (REF) | payer MEDICARE, MEDICAID, SELFPAY ==
--- NOTE | ~2021-08-02 | XR_ITS ---
EXAMINATION: PRE-MRI ORBITS. CLINICAL INFORMATION: Mental in eyes. COMPARISON: None TECHNIQUE: 3 views. FINDINGS: There is no radiopaque metallic foreign body seen in the orbits. The paranasal sinuses and mastoid air cells are well-aerated. XR/XR pre mri screening IMPRESSION: No radiopaque metallic foreign body seen in the orbits.
--- NOTE | ~2021-08-02 | MR_ITS ---
EXAMINATION: MR BRAIN WITHOUT CONTRAST CLINICAL INFORMATION: Dizziness. Rule out posterior fossa stroke. COMPARISON: MRI dated 01/06/2019. TECHNIQUE: Multiplanar, multisequence imaging of the brain was performed without contrast. Limited study with motion artifacts. FINDINGS: No diffusion abnormalities are identified to suggest an acute infarct. The ventricles are normal in size. No mass effect or midline shift is seen. [id number] chronic white matter microangiopathic changes have slightly progressed compared to the prior study. No extra-axial fluid collections are seen. The brainstem and cerebellum are normal. The gradient refocused acquisition is normal. The craniovertebral junction, marrow signal, and midline structures are normal. The major intracranial flow voids at the level of the [place] are preserved. The dural venous sinus flow voids are maintained. The mastoid air cells are well aerated. Chronic fatty atrophic changes noted throughout the parotid glands. There is mild mucosal thickening in the right maxillary antrum. MR/MR head/brain wo con IMPRESSION: No acute process with particular attention to the posterior fossa. Slightly limited study with motion artifacts. Mild progression in [id number] chronic cerebral white matter microangiopathic changes.
== END 2021-08-02 15:25 | disposition home or self-care (01) ==
LOC: HO.MRI 15:24
PROVIDERS: PCP Internal Medicine; Visit Provider Psychiatry & Neurology Neurology
DX: R42 Dizziness and giddiness (principal)
CPT/HCPCS: 70551

== ENCOUNTER 2021-10-12 18:51 | Emergency (ER) | payer OTHER, MEDICARE, MEDICAID, SELFPAY ==
--- NOTE | 2021-10-12 | ECG_ITS ---
Test Reason : CHEST PAIN Blood Pressure : / mmHG Vent. Rate : 080 BPM Atrial Rate : 080 BPM P-R Int : 158 ms QRS Dur : 102 ms QT Int : 390 ms P-R-T Axes : 036 010 026 degrees QTc Int : 449 ms Normal sinus rhythm Minimal voltage criteria for LVH, may be normal variant ( R in aVL ) Borderline ECG When compared with ECG of 20-FEB-2021 09:02, Nonspecific T wave abnormality now evident in Anterior leads Referred By: Generic ED Physician Electronically Signed By:Serafin Ruggiero
--- NOTE | ~2021-10-12 | XR_ITS ---
EXAMINATION: XR CHEST CLINICAL INFORMATION: Chest pain. COMPARISON: Chest radiograph dated from 06/29/2021 and 05/09/2018. TECHNIQUE: PA view of the chest was obtained. FINDINGS: A subtle nonspecific opacity in the left apex is unchanged since 2018. No new focal airspace opacities, pleural effusions or pneumothorax. Stable appearance of the cardiomediastinal silhouette with sternotomy wires. No acute osseous abnormalities. XR/XR chest 1V IMPRESSION: No acute cardiopulmonary findings.
[2021-10-12 18:57] VITALS: BMI 38.0
[2021-10-12 19:01] VITALS: BP 173/93; PULSE 79; RESP 20; TEMP 36.6; O2SAT 97
[2021-10-12 19:18] LABS: MANUAL DIFF FLAG NO
[2021-10-12 19:19] LABS: Basophils Percent Auto 0.4 % (0-2); Eosinophils Absolute Auto 0.1 X10*3/uL (0.0-0.4); Eosinophils Percent Auto 1.6 % (0-4); Hematocrit 40.5 % (42.0-52.0); Hemoglobin 13.4 g/dl (14.0-18.0); Imm Gran Abs Auto 0.02 X10*3/uL (0.00-0.03); Imm Gran Pct Auto 0.2 % (0.0-0.4); Lymphocytes Absolute Auto 1.4 X10*3/uL (1.2-4.9); Lymphocytes Percent Auto 17.4 % (20-40); Mean Corpuscular HGB Conc 33.1 g/dl (31.0-36.0); Mean Corpuscular Hemoglobin 27.9 pg (27.0-33.0); Mean Corpuscular Volume 84.4 fL (80.0-98.0); Mean Platelet Volume 10.8 fL (9.4-12.4); Monocytes Absolute Auto 0.8 X10*3/uL (0.1-1.2); Monocytes Percent Auto 9.7 % (2-11); Neutrophils Absolute Auto 5.7 x10*3/uL (2.0-8.3); Neutrophils Percent Auto 70.7 % (45-73); Platelet Count 214 X10*3/uL (160-400); Red Cell Distribution Width 13.6 % (11.0-16.0)
[2021-10-12 19:36] LABS: Alanine Aminotransferase 17 U/L (0-40); Albumin Level 4.5 g/dL (3.5-5.0); Alkaline Phosphatase 87 U/L (39-117); Anion Gap 15 (12-20); Aspartate Amino Transferase 18 U/L (5-37); Bilirubin Total 0.3 mg/dL (0.0-1.0); Blood Urea Nitrogen 19 mg/dL (9-16); Calcium 9.7 mg/dL (8.4-10.2); Carbon Dioxide 26 mmol/L (22-29); Chloride 102 mmol/L (96-108); Estimated Glomerular Filt Rate 58; Glucose Random 105 mg/dL (60-115); Sodium 139 mmol/L (135-145); Total Protein 7.4 g/dL (6.5-8.0)
[2021-10-12 19:40] LABS: Troponin-I High Sensitivity < 3.5 ng/L (<3.5-35.0)
== END 2021-10-13 01:31 | disposition left against medical advice (07) ==
PROVIDERS: Emergency Provider Emergency Medicine; PCP Internal Medicine
DX: R07.9 Chest pain, unspecified (principal); R42 Dizziness and giddiness; I10 Essential (primary) hypertension; E78.5 Hyperlipidemia, unspecified
CPT/HCPCS: 36415; 71045; 80053; 84484; 85025; 93005; 99283

== ENCOUNTER 2021-11-22 13:21 | Outpatient (REF) | payer MEDICARE, MEDICAID, SELFPAY ==
--- NOTE | 2021-11-22 15:45 | MHC.AU.HAS ---
Hearing Aid Evaluation Date of Visit: 11/22/21 Historical Information: Description of Hearing: Normal hearing thresholds 250-2000 Hz sloping to a moderate high frequency sensorineural hearing loss Current personal amplification information, if applicable: None Summary: Patient experiences significant and bothersome tinnitus bilaterally. Has some manually dexterity issues when handling small objects. 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 Extensively counseled about tinnitus theories and realistic expectations with hearing aids. Hearing Aid Prescription: Based on the individual?s shared listening needs, communication environments, dexterity, desire for connectivity, and personal preferences, the following prescription for amplification has been made: Right ear: Eyewear Manufacturing Supervisor: Phonak Model: Audeo P 70-R Battery Size: Rechargeable Color: Graphite Delarosa Drop Board Man: #2 Medium Type of Dome: Open Left ear:Left ear prescription to be same as Right Hearing Aid above: Eyewear Manufacturing Supervisor: Phonak Model: Audeo P 70-R Battery Size: Rechargeable Color: Graphite Delarosa Drop Board Man: #2 Medium Type of Dome: Open Plan of Care: Patient wishes to purchase hearing aids as prescribed Comments: Medical Clearance from Dr. Stratton in chart. Primary Diagnosis: H90.3 Bilateral Sensorineural Hearing Loss Secondary Diagnosis: H93.13 Tinnitus, Bilateral Signature:Provider: Darius Mallory, [facility]
== END 2021-11-22 13:22 | disposition home or self-care (01) ==
LOC: HO.HAP 13:21
PROVIDERS: Visit Provider Otolaryngology
DX: Z46.1 Encounter for fitting and adjustment of hearing aid (principal); H90.3 Sensorineural hearing loss, bilateral; H93.13 Tinnitus, bilateral
CPT/HCPCS: 92591

== ENCOUNTER 2021-12-10 12:16 | Outpatient (REF) | payer MEDICARE, MEDICAID, SELFPAY | END 2021-12-10 12:17 | disposition home or self-care (01) | LOC: HO.HAP 12:16 | PROVIDERS: Visit Provider Otolaryngology | DX: Z46.1 Encounter for fitting and adjustment of hearing aid (principal); H90.3 Sensorineural hearing loss, bilateral; H93.13 Tinnitus, bilateral | CPT/HCPCS: V5011; V5020; V5160; V5261 ==

== ENCOUNTER 2021-12-12 06:09 | Outpatient (REF) | payer MEDICARE, MEDICAID, SELFPAY ==
[2021-12-12 06:24] LABS: MANUAL DIFF FLAG NO
[2021-12-12 07:22] LABS: Basophils Percent Auto 0.6 % (0-2); Eosinophils Absolute Auto 0.2 X10*3/uL (0.0-0.4); Eosinophils Percent Auto 2.8 % (0-4); Hematocrit 41.8 % (42.0-52.0); Hemoglobin 13.8 g/dl (14.0-18.0); Imm Gran Abs Auto 0.02 X10*3/uL (0.00-0.03); Imm Gran Pct Auto 0.3 % (0.0-0.4); Lymphocytes Absolute Auto 1.6 X10*3/uL (1.2-4.9); Lymphocytes Percent Auto 23.9 % (20-40); Mean Corpuscular Hemoglobin 28.1 pg (27.0-33.0); Mean Corpuscular Volume 85.1 fL (80.0-98.0); Mean Platelet Volume 11.3 fL (9.4-12.4); Monocytes Absolute Auto 0.7 X10*3/uL (0.1-1.2); Monocytes Percent Auto 10.9 % (2-11); Neutrophils Absolute Auto 4.2 x10*3/uL (2.0-8.3); Neutrophils Percent Auto 61.5 % (45-73); Platelet Count 207 X10*3/uL (160-400); Red Blood Count 4.91 X10*6/uL (4.60-5.80); Red Cell Distribution Width 13.6 % (11.0-16.0); White Blood Count 6.8 X10*3/uL (4.8-10.8)
[2021-12-12 07:27] LABS: Prothrombin Time 11.4 SEC (9.9-13.0)
[2021-12-12 07:42] LABS: Alanine Aminotransferase 24 U/L (0-40); Albumin Level 4.5 g/dL (3.5-5.0); Alkaline Phosphatase 81 U/L (39-117); Anion Gap 14 (12-20); Aspartate Amino Transferase 23 U/L (5-37); Bilirubin Total 0.8 mg/dL (0.0-1.0); Blood Urea Nitrogen 19 mg/dL (9-16); Calcium 9.7 mg/dL (8.4-10.2); Carbon Dioxide 26 mmol/L (22-29); Chloride 104 mmol/L (96-108); Cholesterol 129 mg/dL; Estimated Glomerular Filt Rate > 60; Glucose Fasting 102 mg/dL (60-99); HDL Cholesterol 33 mg/dL; LDL Cholesterol Calculated 74 mg/dl; Potassium 4.4 mmol/L (3.3-5.1); Sodium 140 mmol/L (135-145); Total Protein 7.3 g/dL (6.5-8.0); Triglycerides 112 mg/dL
[2021-12-12 08:05] LABS: Thyroid Stimulating Hormone 1.75 uIU/mL (0.32-4.0)
== END 2021-12-12 06:10 | disposition home or self-care (01) ==
LOC: HO.LAB 06:09
PROVIDERS: Absent Provider Internal Medicine; PCP Internal Medicine; Visit Provider Internal Medicine
DX: Z00.00 Encounter for general adult medical examination without abnormal findings (principal); I25.10 Atherosclerotic heart disease of native coronary artery without angina pectoris
CPT/HCPCS: 36415; 80053; 80061; 84443; 85025; 85027; 85610

== ENCOUNTER → 2021-12-20 12:32 | Outpatient (BNVA) | payer MEDICARE, MEDICAID, SELFPAY | PROVIDERS: PCP Internal Medicine; Referring Provider Internal Medicine; Visit Provider Internal Medicine | DX: I25.10 Atherosclerotic heart disease of native coronary artery without angina pectoris (principal); I42.9 Cardiomyopathy, unspecified; I10 Essential (primary) hypertension; G47.33 Obstructive sleep apnea (adult) (pediatric); Z79.02 Long term (current) use of antithrombotics/antiplatelets; Z79.899 Other long term (current) drug therapy | CPT/HCPCS: 99212 ==

== ENCOUNTER 2021-12-24 08:00 | Outpatient (RCR) | payer MEDICARE, MEDICAID, SELFPAY ==
[2021-11-21 08:02] VITALS: BP 137/89; PULSE 76; O2SAT 96
--- NOTE | 2021-11-21 09:17 | MHC.PT.EP ---
[facility] [place] Office [place] Office [place] Office [address] [phone] F: [phone] F: [phone] F: [phone] F: [phone] Physical Therapy Plan of Care Date of Evaluation: 11/21/21 Date of Surgery: Diagnosis: vertigo Assessment: The patient arrived reporting dizziness that is nearly constant. He reported many forms of dizziness such as lightheadedness, things moving around him unsteadiness, fogginess, in a cloud His VOR was -5 lines which is abnormal. He reported severe dizziness and had erroneous trunk movement momentarily. I typically do not see loss of trunk control during VOR exercise, which may indicate this as an exaggerated movement. With standing balance activity he lost his balance immediately with eyes closed reporting loss of spatial awareness. He was negative for positional vertigo bilaterally. He was given an initial HEP to address his imbalance and dizziness. Frequency and Duration: The patient will be seen 2x/week x 4 weeks Short Term Goals: 1. Pt to be able to go from sit to stand with good trunk control for immediate standing balance. 2. Pt to be able to static stand x 2 min to demonstrate improved static balance for personal hygiene. Financial Institution Manager Goals: 1. The patient to be able to negotiate community obstacles such as curbs, ramps and open spaces without LOB for 100 feet. 2. For the patient to be able to functionally move in all planes and directions without provocation of dizziness to show return to PLOF. Treatment Plan: Modalities to reduce pain, spasms and effusion. Manual therapy to restore motion and function. Therapeutic exercise to improve strength and flexibility. Neuromuscular re-education for posture and balance. Therapeutic activities to return to functional activities of daily living. Electronically signed by: Phyllis Melchor PT DPT Please sign and return to therapist. Thank you for your referral.
== END 2022-03-01 13:59 | disposition home or self-care (01) ==
LOC: HO.PT 08:00
PROVIDERS: Visit Provider Otolaryngology
DX: H81.4 Vertigo of central origin (principal)
CPT/HCPCS: 97112; 97162

== ENCOUNTER 2021-12-24 12:45 | Outpatient (REF) | payer MEDICARE, MEDICAID, SELFPAY ==
--- NOTE | 2021-12-25 11:03 | MHC.AU.HFU ---
Hearing Instrument Follow-Up- Binaural Date of Visit: 12/24/21 Right Ear: District Recruiter: Phonak Model: Audeo P 70-R Serial Number: [id number] Repair Warranty: 02/20/2025 Loss and Damage Warranty: 02/20/2025 Battery Size: Rechargeable Color: Graphite Delarosa Guidance Counselor: #2 Medium Type of Dome: Medium Open Type of Wax Guard: CeruShield Dispensed By: [facility] Date of Fittin12/10/2021 Left Ear: District Recruiter: Phonak Model: Audeo P 70-R Serial Number: [id number] Repair Warranty: 02/20/2025 Loss and Damage Warranty: 02/20/2025 Battery Size: Rechargeable Color: Graphite Delarosa Guidance Counselor: #2 Medium Type of Dome: Medium Open Type of Wax Guard: CeruShield Dispensed By: [facility] Date of Fittin12/10/2021 Follow-Up Summary: Patient reports he is doing very well with the hearing aids. Datalogging shows average of 11 hour daily wearing time. Patient feels he does not need any adjustments. Provided copies of audiogram and hearing information [facility] Patient also reports he has started Vestibular Rehabilitation with [facility] and is scheduled to see a Neurologist for his vertigo. Recommendations: Hearing instrument follow-up or maintenance as needed. Please contact our clinic with any questions or concerns. Will send a reminder card for audiologic re-evaluation in November 2022 Diagnosis Code(s): Primary Diagnosis: H90.3 Bilateral Sensorineural Hearing Loss Secondary Diagnosis: H93.13 Tinnitus, Bilateral Signature:Provider: Darius Mallory, [facility]
== END 2021-12-24 12:46 | disposition home or self-care (01) ==
LOC: HO.HAP 12:45
PROVIDERS: Visit Provider Internal Medicine
DX: Z13.89 Encounter for screening for other disorder (principal)

== ENCOUNTER 2021-12-31 09:47 | Outpatient (REF) | payer MEDICARE, MEDICAID, SELFPAY ==
[2021-12-31 10:30] LABS: Hemoglobin 13.2 g/dl (14.0-18.0); Mean Corpuscular HGB Conc 32.2 g/dl (31.0-36.0); Mean Corpuscular Hemoglobin 27.5 pg (27.0-33.0); Mean Corpuscular Volume 85.4 fL (80.0-98.0); Mean Platelet Volume 11.5 fL (9.4-12.4); Platelet Count 208 X10*3/uL (160-400); Red Cell Distribution Width 13.6 % (11.0-16.0); White Blood Count 8.2 X10*3/uL (4.8-10.8)
[2021-12-31 11:09] LABS: Anion Gap 11 (12-20); Blood Urea Nitrogen 20 mg/dL (9-16); Calcium 9.5 mg/dL (8.4-10.2); Carbon Dioxide 24 mmol/L (22-29); Chloride 106 mmol/L (96-108); Estimated Glomerular Filt Rate > 60; Glucose Random 95 mg/dL (60-115); Potassium 4.4 mmol/L (3.3-5.1); Sodium 137 mmol/L (135-145)
== END 2021-12-31 09:48 | disposition home or self-care (01) ==
LOC: HO.LAB 09:47
PROVIDERS: PCP Internal Medicine; Visit Provider Internal Medicine
DX: I25.10 Atherosclerotic heart disease of native coronary artery without angina pectoris (principal)
CPT/HCPCS: 36415; 80048; 85027

== ENCOUNTER 2022-03-11 15:38 | Emergency (ER) | payer MEDICARE, MEDICAID, SELFPAY ==
--- NOTE | ~2022-03-11 | XR_ITS ---
EXAMINATION: XR CHEST CLINICAL INFORMATION: Chest pain COMPARISON: Chest x-ray 10/12/2021 TECHNIQUE: Frontal view of the chest was obtained. 6:49 PM FINDINGS: Heart size is normal. The cardiac and mediastinal contours are normal. No pulmonary vascular congestion. The lungs are normally aerated. There is no pleural effusion or pneumothorax. Compared to prior chest x-ray there has been no change. XR/XR chest 1V IMPRESSION: No acute abnormality of chest.
--- NOTE | 2022-03-11 15:41 | ECG_ITS ---
Test Reason : cp Blood Pressure : / mmHG Vent. Rate : 058 BPM Atrial Rate : 058 BPM P-R Int : 154 ms QRS Dur : 098 ms QT Int : 424 ms P-R-T Axes : 043 007 020 degrees QTc Int : 416 ms Sinus bradycardia Minimal voltage criteria for LVH, may be normal variant ( R in aVL ) Borderline ECG When compared with ECG of 12-OCT-2021 18:55, No significant change was found Referred By: Generic ED Physician Electronically Signed By:KATH TORRES MD
[2022-03-11 18:28] VITALS: BP 167/102; PULSE 58; RESP 20; TEMP 36.1; O2SAT 97; BMI 38.7
--- NOTE | 2022-03-11 20:53 | ED.CHESTPAIN ---
HPI - Chest Pain General Chief Complaint: Chest Pain Stated Complaint: rapid heart beat, chest pain Time Seen by Provider: 03/11/22 20:53 Source: patient Mode of arrival: ambulatory Limitations: no limitations History of Present Illness HPI narrative: Patient with history of coronary artery disease status post 2 vessel CABG 03/2021 notice increased exertional dyspnea for last few days getting worse with left-sided chest pain and palpitation , feels slightly lightheaded no syncope, no leg swelling Related Data Home Medications Medication Instructions Recorded Confirmed albuterol sulfate 90 mcg/actuation 1 - 2 puff inhalation Q4-6H PRN 08/08/20 01/29/22 aerosol inhaler wheezing fluticasone propionate 230 1 puff PO BID 08/08/20 01/29/22 mcg-salmeterol 21 mcg/actuation HFA inhaler acetaminophen 500 mg tablet 1,000 mg PO Q6H PRN Pain 12/15/20 01/29/22 meclizine 25 mg tablet 25 mg PO TID PRN 01/29/22 01/29/22 Previous Rx's Medication Instructions Recorded furosemide 40 mg tablet 40 mg PO DAILY #90 tabs 06/21/21 atorvastatin 80 mg tablet 80 mg PO DAILY 90 days #90 tabs 07/05/21 amlodipine 5 mg tablet 5 mg PO DAILY 90 days #90 tabs 07/23/21 metoprolol succinate 50 mg 50 mg PO DAILY #90 tabs 07/23/21 tablet,extended release 24 hr fluticasone propionate 50 1 spray intranasal BID #16 grams 09/24/21 mcg/actuation nasal spray,suspension (Flonase Allergy Relief) clopidogrel 75 mg tablet 75 mg PO DAILY #90 tabs 12/20/21 losartan 100 mg tablet 100 mg PO DAILY #90 tabs 12/20/21 clotrimazole-betamethasone 1 1 appl topical BID 2 weeks #45 01/29/22 %-0.05 % topical cream grams triamcinolone acetonide 0.5 % 1 appl topical TID #15 grams 01/29/22 topical cream Allergies Allergy/AdvReac Type Severity Reaction Status Date / Time aspirin [Aspirin] Allergy Severe SWELLING, Verified 01/29/22 09:34 rash/edema ibuprofen [Ibuprofen] Allergy Severe SWELLING, Verified 01/29/22 09:34 rash/edema Penicillins Allergy Severe SWELLING Verified 01/29/22 09:34 Review of Systems Review of Systems: Yes all other systems are reviewed and are negative [facility] Past Medical History Medical History Asthma Atherosclerotic cardiovascular disease Essential hypertension HTN (hypertension) Hyperlipidemia NICM (nonischemic cardiomyopathy) Surgical History History of bilateral knee arthroplasty History of cardiac catheterization (~12/2013) History of coronary artery bypass graft x 2 (~03/13/21) S/P CABG x 2 Family History Family History Father Pacemaker CVD (cardiovascular disease) HTN (hypertension) Mother CVD (cardiovascular disease) Asthma Social History Social History Household Members: Spouse and Children Housing: Apartment Do you presently have visiting nurse or other home services: No Alcohol intake: never Patient Tobacco Use Status: Former Tobacco user e-Cigarette/Vaping Use: Never Used Second Hand Smoke Exposure: No Use of substances other than those prescribed or required for medical reasons: No Advance Directives: No Advance Directives Information Provided: No service: No Current occupational status: disabled Cognitive needs: Yes (cane) Hearing needs: Yes (hear aide) Vision needs: Yes (Glasses) Physical Exam Vital Signs: Vital Signs: Last Vital Signs Temp 97.9 F 03/12/22 00:00 Pulse 51 03/12/22 00:00 Resp 16 03/12/22 00:00 BP 167/84 H 03/12/22 00:00 Pulse Ox 99 03/12/22 00:00 O2 Del Method 03/12/22 00:00 BMI result Body Mass Index 38.7 Appearance: Alert. Oriented X3. No acute distress. Eyes: no pallor ENT: Pharynx normal. Oral Mucosa moist Neck: Normal inspection. Neck supple. CVS: Normal heart rate and rhythm. Pulses normal. no M/R/G Respiratory: No respiratory distress. Equal air entry bilateral, no wheezing/rales/rhonchi Abdomen: Soft and nontender. Bowel sounds are present, no mass palpable, no CVA tenderness Skin: Skin warm and dry. Normal skin color. Normal skin turgor. Extremities: No lower extremity edema. No calf tenderness Neuro: Oriented X 3. No motor deficit. No sensory deficit.No cerebellar signs , cranial nerves II-XII intact MDM - Chest Pain MDM Narrative Medical decision making narrative: 0 1 :15 Patient with significant cardiac history with atypical chest pain of 2 days duration hasten troponin negative for delta change no acute ischemic changes patient chest pain-free in the ER discharge patient home advised to follow with cardiology for further evaluation Lab Data Attestation: I reviewed the patient's lab results. Result diagrams: 03/11/22 21:15 03/11/22 21:15 Labs: Lab Results 03/11/22 03/11/22 03/11/22 Range/Units 21:15 21:15 21:15 WBC 10.0 (4.8-10.8) X10*3/uL RBC 5.51 (4.60-5.80) X10*6/uL Hgb 15.1 (14.0-18.0) g/dl Hct 46.5 (42.0-52.0) % MCV 84.4 (80.0-98.0) fL MCH 27.4 (27.0-33.0) pg MCHC 32.5 (31.0-36.0) g/dl RDW 13.9 (11.0-16.0) % Plt Count 208 (160-400) X10*3/uL MPV 10.4 (9.4-12.4) fL Immature Gran % (Auto) 0.2 (0.0-0.4) % Neut % (Auto) 71.1 (45-73) % Lymph % (Auto) 19.3 L (20-40) % Schuyler % (Auto) 7.7 (2-11) % Eos % (Auto) 1.3 (0-4) % Baso % (Auto) 0.4 (0-2) % Lymph # (Auto) 1.9 (1.2-4.9) X10*3/uL Schuyler # (Auto) 0.8 (0.1-1.2) X10*3/uL Eos # (Auto) 0.1 (0.0-0.4) X10*3/uL Baso # (Auto) 0.0 (0.0-0.2) X10*3/uL Abs Immat Gran (auto) 0.02 (0.00-0.03) X10*3/uL Absolute Neuts (auto) 7.1 (2.0-8.3) x10*3/uL Absolute Nucleated RBC 0.000 (0.0-0.012) X10*3/uL Nucleated RBC % (auto) 0.0 (0.0-0.2) /100WBC PT (10.0-13.1) SEC INR (0.9-1.1) APTT (24.1-38.0) SEC Sodium 135 (135-145) mmol/L Potassium 4.8 (3.3-5.1) mmol/L Chloride 101 (96-108) mmol/L Carbon Dioxide 23 (22-29) mmol/L Anion Gap 16 (12-20) BUN 13 (9-16) mg/dL Creatinine 0.98 (0.5-1.4) mg/dL Estim Creat Clear Calc 105.2 Estimated GFR > 60 Random Glucose 89 (60-115) mg/dL Calcium 9.6 (8.4-10.2) mg/dL Troponin I High Sens < 3.5 (<3.5-35.0) ng/L B-Natriuretic Peptide (<100) pg/mL 03/11/22 03/11/22 03/12/22 Range/Units 21:22 21:22 00:39 WBC (4.8-10.8) X10*3/uL RBC (4.60-5.80) X10*6/uL Hgb (14.0-18.0) g/dl Hct (42.0-52.0) % MCV (80.0-98.0) fL MCH (27.0-33.0) pg MCHC (31.0-36.0) g/dl RDW (11.0-16.0) % Plt Count (160-400) X10*3/uL MPV (9.4-12.4) fL Immature Gran % (Auto) (0.0-0.4) % Neut % (Auto) (45-73) % Lymph % (Auto) (20-40) % Schuyler % (Auto) (2-11) % Eos % (Auto) (0-4) % Baso % (Auto) (0-2) % Lymph # (Auto) (1.2-4.9) X10*3/uL Schuyler # (Auto) (0.1-1.2) X10*3/uL Eos # (Auto) (0.0-0.4) X10*3/uL Baso # (Auto) (0.0-0.2) X10*3/uL Abs Immat Gran (auto) (0.00-0.03) X10*3/uL Absolute Neuts (auto) (2.0-8.3) x10*3/uL Absolute Nucleated RBC (0.0-0.012) X10*3/uL Nucleated RBC % (auto) (0.0-0.2) /100WBC PT 12.0 (10.0-13.1) SEC INR 1.0 (0.9-1.1) APTT 32.1 (24.1-38.0) SEC Sodium (135-145) mmol/L Potassium (3.3-5.1) mmol/L Chloride (96-108) mmol/L Carbon Dioxide (22-29) mmol/L Anion Gap (12-20) BUN (9-16) mg/dL Creatinine (0.5-1.4) mg/dL Estim Creat Clear Calc Estimated GFR Random Glucose (60-115) mg/dL Calcium (8.4-10.2) mg/dL Troponin I High Sens 4.4 (<3.5-35.0) ng/L B-Natriuretic Peptide 17 (<100) pg/mL ECG Data ECG #1: Attestation: I personally reviewed and interpreted this ECG as follows: Interpretation: Senna bradycardia with heart rate 58 beats per minute LVH normal interval normal axis no acute ST-T change and no acute ischemia Discharge Plan Discharge Clinical Impression: Chest pain Patient Disposition: Home, Self-Care Instructions: Chest Pain (ED) Additional Instructions: Your etiology of chest pain is not very clear Continue medications Follow with family partner for further evaluation Report to the ER if worsening of chest pain Prescriptions: No Action atorvastatin 80 mg tablet 80 mg PO DAILY 90 Days Qty: 90 3RF amlodipine 5 mg tablet 5 mg PO DAILY 90 Days Qty: 90 3RF metoprolol succinate 50 mg tablet extended release 24 hr 50 mg PO DAILY Qty: 90 3RF fluticasone propionate [Flonase Allergy Relief] 50 mcg/actuation spray,suspension 1 spray intranasal BID Qty: 16 8RF acetaminophen 500 mg tablet 1,000 mg PO Q6H PRN (Reason: Pain) meclizine 25 mg tablet 25 mg PO TID PRN clotrimazole-betamethasone 1-0.05 % cream 1 appl topical BID 14 Days Qty: 45 2RF triamcinolone acetonide 0.5 % cream 1 appl topical TID Qty: 15 3RF fluticasone propion-salmeterol 230-21 mcg/actuation HFA aerosol inhaler 1 puff PO BID albuterol sulfate 90 mcg/actuation HFA aerosol inhaler 1 - 2 puff inhalation Q4-6H PRN (Reason: wheezing) furosemide 40 mg tablet 40 mg PO DAILY Qty: 90 4RF Rx Instructions: as needed for leg swelling losartan 100 mg tablet 100 mg PO DAILY Qty: 90 3RF clopidogrel 75 mg tablet 75 mg PO DAILY Qty: 90 3RF
[2022-03-11 20:57] VITALS: BP 162/85; PULSE 57; RESP 16; O2SAT 100
[2022-03-11 21:20] LABS: Basophils Percent Auto 0.4 % (0-2); Eosinophils Absolute Auto 0.1 X10*3/uL (0.0-0.4); Eosinophils Percent Auto 1.3 % (0-4); Hematocrit 46.5 % (42.0-52.0); Hemoglobin 15.1 g/dl (14.0-18.0); Imm Gran Abs Auto 0.02 X10*3/uL (0.00-0.03); Imm Gran Pct Auto 0.2 % (0.0-0.4); Lymphocytes Absolute Auto 1.9 X10*3/uL (1.2-4.9); Lymphocytes Percent Auto 19.3 % (20-40); MANUAL DIFF FLAG NO; Mean Corpuscular HGB Conc 32.5 g/dl (31.0-36.0); Mean Corpuscular Hemoglobin 27.4 pg (27.0-33.0); Mean Corpuscular Volume 84.4 fL (80.0-98.0); Mean Platelet Volume 10.4 fL (9.4-12.4); Monocytes Absolute Auto 0.8 X10*3/uL (0.1-1.2); Monocytes Percent Auto 7.7 % (2-11); Neutrophils Absolute Auto 7.1 x10*3/uL (2.0-8.3); Neutrophils Percent Auto 71.1 % (45-73); Platelet Count 208 X10*3/uL (160-400); Red Blood Count 5.51 X10*6/uL (4.60-5.80); Red Cell Distribution Width 13.9 % (11.0-16.0)
[2022-03-11 21:34] LABS: Blood Urea Nitrogen 13 mg/dL (9-16); Creatinine Clr Calc Pharmacy 105.2; Estimated Glomerular Filt Rate > 60
[2022-03-11 21:36] LABS: Partial Thromboplastin Time 32.1 SEC (24.1-38.0)
[2022-03-11 21:41] LABS: Troponin-I High Sensitivity < 3.5 ng/L (<3.5-35.0)
[2022-03-11 21:48] LABS: B Type Natriuretic Peptide 17 pg/mL (<100)
[2022-03-11 22:02] LABS: Anion Gap 16 (12-20); Calcium 9.6 mg/dL (8.4-10.2); Carbon Dioxide 23 mmol/L (22-29); Chloride 101 mmol/L (96-108); Glucose Random 89 mg/dL (60-115); Potassium 4.8 mmol/L (3.3-5.1); Sodium 135 mmol/L (135-145)
[2022-03-12] VITALS: BP 167/84; PULSE 51; RESP 16; TEMP 36.6; O2SAT 99
[2022-03-12 01:16] LABS: Troponin-I High Sensitivity 4.4 ng/L (<3.5-35.0)
[2022-03-12 01:37] VITALS: BP 152/87; PULSE 51; RESP 16; O2SAT 97
== END 2022-03-12 01:40 | disposition home or self-care (01) ==
PROVIDERS: Emergency Provider Internal Medicine; PCP Internal Medicine
DX: R07.89 Other chest pain (principal); R06.02 Shortness of breath; I25.10 Atherosclerotic heart disease of native coronary artery without angina pectoris; Z79.899 Other long term (current) drug therapy; Z87.891 Personal history of nicotine dependence
CPT/HCPCS: 36415; 71045; 80048; 83880; 84484; 85025; 85610; 85730; 93005; 99283; 99285

== ENCOUNTER 2024-05-15 22:15 | Emergency (ER) | payer MEDICARE, SELFPAY ==
--- NOTE | ~2024-05-15 | CT_ITS ---
EXAMINATION: CT ABDOMEN AND PELVIS WITHOUT CONTRAST CLINICAL INFORMATION: Right renal colic COMPARISON: 12/16/2019 TECHNIQUE: Multidetector volumetric imaging was performed from the superior aspect of the liver through the pubic symphysis. Sagittal and coronal reformatted images were obtained on the technologist's workstation. This CT examination was performed using dose optimization techniques as appropriate, variously including the following: *Automated exposure control *Adjustment of mA and/or kV according to patient size (this includes techniques or standardized protocols for targeted exams where dose is matched to indication/reason for exam; i.e. extremities or head) *Use of iterative reconstruction technique DLP: 861 mGy-cm FINDINGS: LUNG BASES: Minimal atelectasis. Coronary artery calcifications are present. LIVER, GALLBLADDER, AND BILIARY TREE: The liver is normal in size, shape, and attenuation. No focal hepatic lesion or biliary ductal dilatation is identified on this noncontrast exam. Gallbladder is contracted with several gallstones noted including within the cystic duct, similar to prior. PANCREAS: Unremarkable. SPLEEN: Unremarkable. ADRENAL GLANDS: Unremarkable. KIDNEYS AND URETERS: No hydronephrosis or obstructing calculus bilaterally. Nonspecific bilateral perinephric stranding. BLADDER: Mildly distended with slight mural prominence. GASTROINTESTINAL TRACT: No evidence of bowel obstruction. There is focal wall thickening and surrounding inflammation which appears centered around a diverticulum in the proximal to mid sigmoid colon, suspicious for diverticulitis. No pericolonic abscess or free air is seen. The appendix is unremarkable. ABDOMINAL WALL: No significant hernia is appreciated. LYMPH NODES: Mildly prominent bilateral external iliac lymph nodes appear similar to prior. VASCULAR: There is atherosclerotic calcification along the aorta and iliac arteries. PELVIC VISCERA: Unremarkable. Trace pelvic free fluid. OSSEOUS STRUCTURES: Scattered mild to moderate degenerative changes in the spine. CT/CT abdomen pelvis wo IV con IMPRESSION: 1. Diverticulitis of the proximal to mid sigmoid colon. No pericolonic abscess or free air identified. Correlation with recent or followup colonoscopy is advised to exclude an underlying mass lesion. 2. Cholelithiasis, similar to prior. 3. No hydronephrosis or obstructing calculus. 4. Slight mural prominence of the urinary bladder, which could be reactive from adjacent diverticulitis versus due to a primary cystitis. Electronically signed by: Jeremias Rice MD 05/16/2024 05:18 AM EDT RP
[2024-05-15 22:29] VITALS: BP 137/89; PULSE 76; RESP 14; TEMP 36.2; O2SAT 98; BMI 39.2
[2024-05-16 00:42] LABS: Basophils Percent Auto 0.4 % (0-2); Eosinophils Absolute Auto 0.3 X10*3/uL (0.0-0.4); Eosinophils Percent Auto 2.5 % (0-4); Hematocrit 38.9 % (42.0-52.0); Hemoglobin 12.9 g/dl (14.0-18.0); Imm Gran Abs Auto 0.03 X10*3/uL (0.00-0.03); Imm Gran Pct Auto 0.3 % (0.0-0.4); Lymphocytes Absolute Auto 1.6 X10*3/uL (1.2-4.9); Lymphocytes Percent Auto 14.4 % (20-40); MANUAL DIFF FLAG NO; Mean Corpuscular HGB Conc 33.2 g/dl (31.0-36.0); Mean Corpuscular Hemoglobin 28.3 pg (27.0-33.0); Mean Corpuscular Volume 85.3 fL (80.0-98.0); Mean Platelet Volume 10.4 fL (9.4-12.4); Monocytes Absolute Auto 1.1 X10*3/uL (0.1-1.2); Monocytes Percent Auto 10.1 % (2-11); Neutrophils Percent Auto 72.3 % (45-73); Platelet Count 198 X10*3/uL (160-400); Red Blood Count 4.56 X10*6/uL (4.60-5.80); Red Cell Distribution Width 14.2 % (11.0-16.0)
[2024-05-16 00:48] LABS: Appearance Urine Clear; Color Urine Yellow; Glucose Urine UA Negative (Negative); Leukocyte Esterase Urine Negative (Negative); Nitrite Urine Negative (Negative); Specific Gravity - Urine 1.015 (1.005-1.025); Urine Blood Negative (Negative); Urine Ketones Negative (Negative); Urine Protein Negative (Neg-Trace)
[2024-05-16 00:51] LABS: Bacteria Urine None Seen (None Seen); Hyaline Casts Urine 0-2 /LPF (0-2); RBC Urine 0-2 /HPF (0-2); Squamous Epithelial Cell Urine 0-2 /HPF (0-2); WBC Urine 0-5 /HPF (0-5)
[2024-05-16 00:58] LABS: Alanine Aminotransferase 17 U/L (0-40); Albumin Level 4.3 g/dL (3.5-5.0); Alkaline Phosphatase 79 U/L (39-117); Anion Gap 13 (12-20); Aspartate Amino Transferase 16 U/L (5-37); Bilirubin Total 0.5 mg/dL (0.0-1.0); Blood Urea Nitrogen 18 mg/dL (9-16); Calcium 9.3 mg/dL (8.4-10.2); Carbon Dioxide 24 mmol/L (22-29); Chloride 108 mmol/L (96-108); Creatinine Clr Calc Pharmacy 82.4; Estimated Glomerular Filt Rate > 60; Glucose Random 101 mg/dL (60-115); Lipase 40 U/L (8-78); Potassium 4.2 mmol/L (3.3-5.1); Sodium 141 mmol/L (135-145); Total Protein 7.3 g/dL (6.5-8.0)
--- NOTE | 2024-05-16 01:03 | ED_ITS ---
HPI - Male Genitourinary General Chief complaint: Urogenital-Male Stated complaint: right flank pain Time Seen by Provider: 05/16/24 00:58 Source: patient Mode of arrival: ambulatory Limitations: no limitations History of Present Illness ED Provider: erika GUERRERO Narrative: Patient's history of kidney stone was at [place] had ultrasound done which showed stone in the bladder in the kidney 3 weeks ago was doing good until yesterday when noticed pain in the right flank radiating to the right lower abdomen and mid abdomen patient does have history of constipation no blood in his stool no history of diverticulitis no fever no chills had slight nausea no vomiting no fever or chills Related Data Home Medications ?Medication ?Instructions ?Recorded ?Confirmed albuterol sulfate 90 mcg/actuation 1 - 2 puff inhalation Q4-6H PRN 08/08/20 01/29/22 aerosol inhaler wheezing fluticasone propionate 230 1 puff PO BID 08/08/20 01/29/22 mcg-salmeterol 21 mcg/actuation HFA inhaler acetaminophen 500 mg tablet 1,000 mg PO Q6H PRN Pain 12/15/20 01/29/22 meclizine 25 mg tablet 25 mg PO TID PRN 01/29/22 01/29/22 Previous Rx's ?Medication ?Instructions ?Recorded clopidogrel 75 mg tablet 75 mg PO DAILY #90 tabs 12/20/21 losartan 100 mg tablet 100 mg PO DAILY #90 tabs 12/20/21 atorvastatin 80 mg tablet 80 mg PO DAILY #90 tabs 04/15/22 clotrimazole-betamethasone 1 1 appl topical BID 2 weeks #45 04/15/22 %-0.05 % topical cream grams amlodipine 5 mg tablet 5 mg PO DAILY #90 tabs 06/06/22 triamcinolone acetonide 0.5 % 1 appl topical TID #15 grams 06/13/22 topical cream fluticasone propionate 50 1 spray intranasal BID #16 grams 07/04/22 mcg/actuation nasal spray,suspension (Flonase Allergy Relief) furosemide 40 mg tablet 40 mg PO DAILY PRN for swelling 07/19/22 #90 tabs metoprolol succinate 50 mg 50 mg PO DAILY #90 tabs 07/19/22 tablet,extended release 24 hr ciprofloxacin HCl 500 mg tablet 500 mg PO BID #20 tabs 05/16/24 (Cipro) metronidazole 500 mg tablet 500 mg PO TID #30 tabs 05/16/24 polyethylene glycol 3350 17 17 g PO DAILY #510 grams 05/16/24 gram/dose oral powder (Miralax) Allergies Allergy/AdvReac Type Severity Reaction Status Date / Time aspirin [Aspirin] Allergy Severe SWELLING, Verified 05/15/24 22:31 rash/edema ibuprofen [Ibuprofen] Allergy Severe SWELLING, Verified 05/15/24 22:31 rash/edema Penicillins Allergy Severe SWELLING Verified 05/15/24 22:31 Review of Systems 2 Review of Systems: Yes all other systems are reviewed and are negative [facility] Past Medical History Medical History Hyperlipidemia Asthma Essential hypertension Atherosclerotic cardiovascular disease NICM (nonischemic cardiomyopathy) HTN (hypertension) Surgical History S/P CABG x 2 History of coronary artery bypass graft x 2 (~03/13/21) History of bilateral knee arthroplasty History of cardiac catheterization (~12/2013) Family History Family History Father Pacemaker CVD (cardiovascular disease) HTN (hypertension) Mother CVD (cardiovascular disease) Asthma Social History Social History Household Members: Spouse and Children Housing: Apartment Do you presently have visiting nurse or other home services: No Alcohol intake: never Patient Tobacco Use Status: Former Tobacco user Smoked in Last 30 Days: No e-Cigarette/Vaping Use: Never Used Second Hand Smoke Exposure: No Use of substances other than those prescribed or required for medical reasons: No Advance Directives: No Advance Directives Information Provided: No Do you have a plan to hurt others: No Plan service: No Current occupational status: disabled Cognitive needs: Yes (cane) Hearing needs: Yes (hear aide) Vision needs: Yes (Glasses) Physical Exam 2 Vital Signs: Vital Signs: Last Vital Signs Temp 98.7 F 05/16/24 05:36 Pulse 78 05/16/24 05:36 Resp 16 05/16/24 05:36 BP 122/67 05/16/24 05:36 Pulse Ox 97 05/16/24 05:36 O2 Del Method Room Air 05/16/24 05:36 BMI result Body Mass Index 39.2 Appearance: Alert. Oriented X3. No acute distress. Eyes: No pallor or icterus ENT: Pharynx normal. Oral Mucosa moist Neck: Normal inspection. Neck supple. CVS: Normal heart rate and rhythm. Pulses normal. Respiratory: No respiratory distress. Equal air entry bilateral, no wheezing/rales/rhonchi Abdomen: Soft and tenderness right lower abdomen and mid abdomen with guarding no rebound tenderness Bowel sounds are present, no mass palpable, no CVA tenderness Skin: Skin warm and dry. Normal skin color. Normal skin turgor. Extremities: No lower extremity edema. No calf tenderness Neuro: Oriented X 3. No motor deficit. Medications Administered Discontinued Medications Generic Name Dose Route Start Last Admin Trade Name Freq PRN Reason Stop Dose Admin Sodium Chloride 1,000 mls @ 999 mls/hr 05/16/24 01:11 05/16/24 03:00 Ns IV 05/16/24 02:11 Infused .Q1H1M ONE Infusion Levofloxacin 500 mg in 100 mls @ 100 mls/hr 05/16/24 04:57 05/16/24 06:28 Levaquin IV 05/16/24 05:56 Infused ONCE ONE Infusion Metronidazole 500 mg in 100 mls @ 100 mls/hr 05/16/24 04:57 05/16/24 06:28 Flagyl IV 05/16/24 05:56 100 mls/hr ONCE ONE Administration Morphine Sulfate 4 mg 05/16/24 01:12 05/16/24 01:44 Morphine Sulfate 4 Mg/Ml Cartridge IVPUSH 05/16/24 01:13 4 mg ONCE ONE Administration Protocol Ondansetron HCl 4 mg 05/16/24 01:12 05/16/24 01:44 Ondansetron Hcl 4 Mg/2 Ml Vial IVPUSH 05/16/24 01:13 4 mg ONCE ONE Administration Medical Decision Making Medical Decision Making [facility] Narrative: Patient's uncomplicated diverticulitis was given IV Levaquin and Flagyl will discharge patient home on p.o. antibiotics no kidney stone was seen Differential Diagnosis Differential Diagnoses: The differential diagnosis associated with the presentation includes Kidney stone/UTI/diverticulitis/appendicitis Lab Data [facility] Lab Attestation statement: I reviewed the patient's lab results. 05/16/24 00:37 05/16/24 00:37 Labs: Lab Results 05/16/24 05/16/24 05/16/24 Range/Units 00:37 00:43 05:08 WBC 11.0 H (4.8-10.8) X10*3/uL RBC 4.56 L (4.60-5.80) X10*6/uL Hgb 12.9 L (14.0-18.0) g/dl Hct 38.9 L (42.0-52.0) % MCV 85.3 (80.0-98.0) fL MCH 28.3 (27.0-33.0) pg MCHC 33.2 (31.0-36.0) g/dl RDW 14.2 (11.0-16.0) % Plt Count 198 (160-400) X10*3/uL MPV 10.4 (9.4-12.4) fL Immature Gran % (Auto) 0.3 (0.0-0.4) % Neut % (Auto) 72.3 (45-73) % Lymph % (Auto) 14.4 L (20-40) % Amite % (Auto) 10.1 (2-11) % Eos % (Auto) 2.5 (0-4) % Baso % (Auto) 0.4 (0-2) % Lymph # (Auto) 1.6 (1.2-4.9) X10*3/uL Amite # (Auto) 1.1 (0.1-1.2) X10*3/uL Eos # (Auto) 0.3 (0.0-0.4) X10*3/uL Baso # (Auto) 0.0 (0.0-0.2) X10*3/uL Abs Immat Gran (auto) 0.03 (0.00-0.03) X10*3/uL Absolute Neuts (auto) 8.0 (2.0-8.3) x10*3/uL Absolute Nucleated RBC 0.000 (0.0-0.012) X10*3/uL Nucleated RBC % (auto) 0.0 (0.0-0.2) /100WBC Sodium 141 (135-145) mmol/L Potassium 4.2 (3.3-5.1) mmol/L Chloride 108 (96-108) mmol/L Carbon Dioxide 24 (22-29) mmol/L Anion Gap 13 (12-20) BUN 18 H (9-16) mg/dL Creatinine 1.19 (0.5-1.4) mg/dL Estim Creat Clear Calc 82.4 Estimated GFR > 60 Random Glucose 101 (60-115) mg/dL Lactic Acid 1.2 (0.5-2.0) mmol/L Calcium 9.3 (8.4-10.2) mg/dL Total Bilirubin 0.5 (0.0-1.0) mg/dL AST 16 (5-37) U/L ALT 17 (0-40) U/L Alkaline Phosphatase 79 (39-117) U/L Total Protein 7.3 (6.5-8.0) g/dL Albumin 4.3 (3.5-5.0) g/dL Lipase 40 (8-78) U/L Urine Color Yellow Urine Appearance Clear Urine pH 6.0 (5.0-9.0) Ur Specific Cable 1.015 (1.005-1.025) Urine Protein Negative (Neg-Trace) mg/dL Urine Glucose (UA) Negative (Negative) mg/dL Urine Ketones Negative (Negative) mg/dL Urine Blood Negative (Negative) Urine Nitrite Negative (Negative) Ur Leukocyte Esterase Negative (Negative) Urine RBC 0-2 (0-2) /HPF Urine WBC 0-5 (0-5) /HPF Ur Squamous Epith Cells 0-2 (0-2) /HPF Urine Bacteria None Seen (None Seen) Hyaline Casts 0-2 (0-2) /LPF 05/16/24 Range/Units 05:16 WBC (4.8-10.8) X10*3/uL RBC (4.60-5.80) X10*6/uL Hgb (14.0-18.0) g/dl Hct (42.0-52.0) % MCV (80.0-98.0) fL MCH (27.0-33.0) pg MCHC (31.0-36.0) g/dl RDW (11.0-16.0) % Plt Count (160-400) X10*3/uL MPV (9.4-12.4) fL Immature Gran % (Auto) (0.0-0.4) % Neut % (Auto) (45-73) % Lymph % (Auto) (20-40) % Amite % (Auto) (2-11) % Eos % (Auto) (0-4) % Baso % (Auto) (0-2) % Lymph # (Auto) (1.2-4.9) X10*3/uL Amite # (Auto) (0.1-1.2) X10*3/uL Eos # (Auto) (0.0-0.4) X10*3/uL Baso # (Auto) (0.0-0.2) X10*3/uL Abs Immat Gran (auto) (0.00-0.03) X10*3/uL Absolute Neuts (auto) (2.0-8.3) x10*3/uL Absolute Nucleated RBC (0.0-0.012) X10*3/uL Nucleated RBC % (auto) (0.0-0.2) /100WBC Sodium (135-145) mmol/L Potassium (3.3-5.1) mmol/L Chloride (96-108) mmol/L Carbon Dioxide (22-29) mmol/L Anion Gap (12-20) BUN (9-16) mg/dL Creatinine (0.5-1.4) mg/dL Estim Creat Clear Calc Estimated GFR Random Glucose (60-115) mg/dL Lactic Acid (0.5-2.0) mmol/L Calcium (8.4-10.2) mg/dL Total Bilirubin (0.0-1.0) mg/dL AST (5-37) U/L ALT (0-40) U/L Alkaline Phosphatase (39-117) U/L Total Protein (6.5-8.0) g/dL Albumin (3.5-5.0) g/dL Lipase (8-78) U/L Urine Color Yellow Urine Appearance Clear Urine pH 6.0 (5.0-9.0) Ur Specific Cable 1.010 (1.005-1.025) Urine Protein Negative (Neg-Trace) mg/dL Urine Glucose (UA) Negative (Negative) mg/dL Urine Ketones Negative (Negative) mg/dL Urine Blood Negative (Negative) Urine Nitrite Negative (Negative) Ur Leukocyte Esterase Negative (Negative) Urine RBC 0-2 (0-2) /HPF Urine WBC 0-5 (0-5) /HPF Ur Squamous Epith Cells 0-2 (0-2) /HPF Urine Bacteria None Seen (None Seen) Hyaline Casts 0-2 (0-2) /LPF Independent Interpretation I performed an independent interpretation of an: CT Scan Radiology Impression Discussion of test interpretation with radiology: I have reviewed the radiologist's reading. Radiologist Impression: [address] [address] [address] Scan Report Signed Patient: Solomon Álvarez MR#: [id number] : 1960 Acct:[id number] Age/Sex: 63 / M ADM Date: 05/16/24 Loc: HO.ED Attending Dr: Ordering Physician: Terrance Lowe MD Date of Service: 05/16/24 Procedure(s): CT abdomen pelvis wo IV con Accession Number(s): [id number] cc: Physician,Unknown ; Terrance Lowe MD~ EXAMINATION: CT ABDOMEN AND PELVIS WITHOUT CONTRAST CLINICAL INFORMATION: Right renal colic COMPARISON: 12/16/2019 TECHNIQUE: Multidetector volumetric imaging was performed from the superior aspect of the liver through the pubic symphysis. Sagittal and coronal reformatted images were obtained on the technologist's workstation. This CT examination was performed using dose optimization techniques as appropriate, variously including the following: *Automated exposure control *Adjustment of mA and/or kV according to patient size (this includes techniques or standardized protocols for targeted exams where dose is matched to indication/reason for exam; i.e. extremities or head) *Use of iterative reconstruction technique DLP: 861 mGy-cm FINDINGS: LUNG BASES: Minimal atelectasis. Coronary artery calcifications are present. LIVER, GALLBLADDER, AND BILIARY TREE: The liver is normal in size, shape, and attenuation. No focal hepatic lesion or biliary ductal dilatation is identified on this noncontrast exam. Gallbladder is contracted with several gallstones noted including within the cystic duct, similar to prior. PANCREAS: Unremarkable. SPLEEN: Unremarkable. ADRENAL GLANDS: Unremarkable. KIDNEYS AND URETERS: No hydronephrosis or obstructing calculus bilaterally. Nonspecific bilateral perinephric stranding. BLADDER: Mildly distended with slight mural prominence. GASTROINTESTINAL TRACT: No evidence of bowel obstruction. There is focal wall thickening and surrounding inflammation which appears centered around a diverticulum in the proximal to mid sigmoid colon, suspicious for diverticulitis. No pericolonic abscess or free air is seen. The appendix is unremarkable. ABDOMINAL WALL: No significant hernia is appreciated. LYMPH NODES: Mildly prominent bilateral external iliac lymph nodes appear similar to prior. VASCULAR: There is atherosclerotic calcification along the aorta and iliac arteries. PELVIC VISCERA: Unremarkable. Trace pelvic free fluid. OSSEOUS STRUCTURES: Scattered mild to moderate degenerative changes in the spine. CT/CT abdomen pelvis wo IV con IMPRESSION: 1. Diverticulitis of the proximal to mid sigmoid colon. No pericolonic abscess or free air identified. Correlation with recent or followup colonoscopy is advised to exclude an underlying mass lesion. 2. Cholelithiasis, similar to prior. 3. No hydronephrosis or obstructing calculus. 4. Slight mural prominence of the urinary bladder, which could be reactive from adjacent diverticulitis versus due to a primary cystitis. Electronically signed by: Jeremias Rice MD 05/16/2024 05:18 AM EDT Discharge Plan Discharge Clinical Impression: Diverticulitis Patient Disposition: Home, Self-Care Instructions: Diverticulitis (ED) Additional Instructions: Drink plenty of fluids Liquid diet advanced slowly as tolerated Take antibiotic as prescribed Report to the ER if pain gets worse/high fever/blood in stool Follow the PCP Prescriptions: New ciprofloxacin HCl [Cipro] 500 mg tablet 500 mg PO BID Qty: 20 0RF metronidazole 500 mg tablet 500 mg PO TID Qty: 30 0RF polyethylene glycol 3350 [Miralax] 17 gram/dose powder 17 g PO DAILY Qty: 510 0RF No Action clotrimazole-betamethasone 1-0.05 % cream 1 appl topical BID 14 Days Qty: 45 2RF atorvastatin 80 mg tablet 80 mg PO DAILY Qty: 90 3RF amlodipine 5 mg tablet 5 mg PO DAILY Qty: 90 3RF triamcinolone acetonide 0.5 % cream 1 appl topical TID Qty: 15 3RF fluticasone propionate [Flonase Allergy Relief] 50 mcg/actuation spray,suspension 1 spray intranasal BID Qty: 16 8RF metoprolol succinate 50 mg tablet extended release 24 hr 50 mg PO DAILY Qty: 90 3RF furosemide 40 mg tablet 40 mg PO DAILY PRN (Reason: for swelling) Qty: 90 3RF acetaminophen 500 mg tablet 1,000 mg PO Q6H PRN (Reason: Pain) meclizine 25 mg tablet 25 mg PO TID PRN fluticasone propion-salmeterol 230-21 mcg/actuation HFA aerosol inhaler 1 puff PO BID albuterol sulfate 90 mcg/actuation HFA aerosol inhaler 1 - 2 puff inhalation Q4-6H PRN (Reason: wheezing) losartan 100 mg tablet 100 mg PO DAILY Qty: 90 3RF clopidogrel 75 mg tablet 75 mg PO DAILY Qty: 90 3RF Print Language: Icelandic
[2024-05-16 01:44] VITALS: RESP 18
[2024-05-16] MEDS: ondansetron HCL 4 MG/2 ML VIAL IVPUSH (01:44)
[2024-05-16] MEDS: 0.9 % Sodium Chloride 1,000 ML 999 ML IV (01:44)
[2024-05-16] MEDS: Morphine Sulfate 4 MG/ML CARTRIDGE IVPUSH (01:44)
[2024-05-16 01:45] VITALS: BP 139/77; PULSE 73; RESP 16; TEMP 36.8; O2SAT 97
--- NOTE | 2024-05-16 02:00 | PC.NURSE ---
pt from home, a&ox4, respirations even and unlabored. pt reporting onset of right sided abdominal pain starting today. pt reports he has not experienced any urinary symptoms. 20G placed in left ac, pt medicated per oct.
[2024-05-16 05:23] LABS: Appearance Urine Clear; Color Urine Yellow; Glucose Urine UA Negative (Negative); Leukocyte Esterase Urine Negative (Negative); Nitrite Urine Negative (Negative); Urine Blood Negative (Negative); Urine Ketones Negative (Negative); Urine Protein Negative (Neg-Trace)
[2024-05-16] MEDS: levoFLOXacin/D5W 500 MG/100 ML PIGGYBACK 100 MG IV (05:27)
[2024-05-16 05:28] LABS: Bacteria Urine None Seen (None Seen); Hyaline Casts Urine 0-2 /LPF (0-2); RBC Urine 0-2 /HPF (0-2); Squamous Epithelial Cell Urine 0-2 /HPF (0-2); WBC Urine 0-5 /HPF (0-5)
[2024-05-16 05:32] LABS: Lactic Acid 1.2 mmol/L (0.5-2.0)
[2024-05-16 05:36] VITALS: BP 122/67; PULSE 78; RESP 16; TEMP 37.1; O2SAT 97
[2024-05-16] MEDS: metroNIDAZOLE/NS 500 MG/100 ML PIGGYBACK 100 MG IV (06:28)
[2024-05-16 07:47] VITALS: BP 138/81; PULSE 65; RESP 16; TEMP 36.8; O2SAT 96
== END 2024-05-16 08:12 | disposition home or self-care (01) ==
PROVIDERS: Emergency Provider Internal Medicine
DX: K57.32 Diverticulitis of large intestine without perforation or abscess without bleeding (principal); R10.31 Right lower quadrant pain; Z79.899 Other long term (current) drug therapy
CPT/HCPCS: 36415; 74176; 80053; 81001; 83605; 83690; 85025; 87040; 96361; 96365; 96366; 96375; 99284; 99285; J1836; J1956; J2270; J2405